=== PATIENT | male | born 1990 | race Caucasian/White ===

== ENCOUNTER 2017-10-22 16:30 | Emergency (ER) | payer MEDICAID, OTHER ==
[~2017-10-22] VITALS: Ht 193859 cm; Wt 79.5 kg
[~2017-10-22 16:30] MED LIST: BUSP30TA2 PO; CLIN300C53 PO; FAMO20TA8 PO; IBUP-1986 PO; LITH300T3 PO; PROP40TA7 PO; RISP3TAB3 PO
[2017-10-22] MEDS ORDERED: haloperidol lactate 5mg/ml inj IM ONE (16:40)
[2017-10-22] MEDS: LORazepam 2 mg/ml vial IM ONE (16:40)
[2017-10-22 17:10] LABS: CLARITY,URINE CLEAR (Clear); COLOR,URINE YELLOW (Yellow); GLUCOSE, URINE NEGATIVE (Neg); KETONES,URINE NEGATIVE (Neg); LEUKOCYTE ESTERASE ,URINE NEGATIVE (Neg); NITRITES, URINE NEGATIVE (Neg); OCCULT BLOOD,URINE NEGATIVE (Neg); PROTEIN,URINE NEGATIVE (Neg); UROBILINOGEN,URINE 0.2 E.U/dL (0.2-1.0)
[2017-10-22 17:12] LABS: UA COLLECTION TYPE CLN CATCH MIDSTREAM
[2017-10-22 17:17] LABS: URINE AMPHETAMINE SCREEN NEGATIVE (Neg); URINE BARBITUATE SCREEN NEGATIVE (Neg); URINE BENZODIAZEPINES SCREEN NEGATIVE (Neg); URINE CANNABINOID SCREEN NEGATIVE (Neg); URINE COCAINE SCREEN NEGATIVE (Neg); URINE METHADONE SCREEN NEGATIVE (Neg); URINE OPIATE SCREEN NEGATIVE (Neg); URINE PHENCYCLIDINE SCREEN NEGATIVE (Neg)
[2017-10-22 17:31] LABS: BASOPHILS # (AUTO) 0.1 X10'3 (0-0.2); BASOPHILS % (AUTO) 0.8 % (0-1); EOSINOPHILS # (AUTO) 0.2 X10'3 (0-0.9); EOSINOPHILS % (AUTO) 1.4 % (0-6); HEMATOCRIT 40.9 % (42.0-52.0); HEMOGLOBIN 13.8 g/dl (14.0-17.9); LYMPHOCYTES # (AUTO) 3.5 X10'3 (1.1-4.8); LYMPHOCYTES % (AUTO) 26.9 % (21-51); MEAN CORPUSCULAR HEMOGLOBIN 31.2 PG (27.0-31.0); MEAN CORPUSCULAR HGB CONC 33.6 % (33.0-36.5); MEAN CORPUSCULAR VOLUME 92.9 FL (78-98); MEAN PLATELET VOLUME 7.9 FL (7.4-10.4); MONOCYTES # (AUTO) 1.9 X10'3 (0-0.9); MONOCYTES % (AUTO) 14.4 % (2-12); NEUTROPHILS # (AUTO) 7.4 X10'3 (1.8-7.7); NEUTROPHILS % (AUTO) 56.5 % (42-75); PLATELET COUNT 321 X10'3 (140-440); RED BLOOD COUNT 4.41 X10'6 (4.70-6.10); RED CELL DISTRIBUTION WIDTH 14.8 % (11.5-14.5); WHITE BLOOD COUNT 13.1 X10'3 (4.5-11.0)
[2017-10-22 17:57] LABS: ALANINE AMINOTRANSFERASE 34 U/L (12-78); ALBUMIN 4.1 G/DL (3.4-5.0); ALBUMIN/GLOBULIN RATIO 1.1 (1.1-1.5); ALKALINE PHOSPHATASE 57 IU/L (46-116); ANION GAP 9 (8-16); ASPARTATE AMINO TRANSFERASE 18 U/L (10-37); BILIRUBIN,TOTAL 0.3 MG/DL (0.1-1.0); BLOOD UREA NITROGEN 11 MG/DL (7-18); BUN/CREATININE RATIO 11.6 (5.4-32.0); CALCIUM 9.1 MG/DL (8.5-10.1); CHLORIDE 105 MMOL/L (99-107); CREATININE 0.95 MG/DL (0.60-1.10); ETHANOL < 0.010 GM/DL (0.0-0.010); GLUCOSE 129 MG/DL (70-104); POTASSIUM 3.5 MMOL/L (3.5-5.1); SODIUM 139 MMOL/L (135-145); TOTAL CARBON DIOXIDE 25.2 MMOL/L (24-32); TOTAL PROTEIN 7.7 G/DL (6.4-8.2); eGFR > 90 ML/MIN
[2017-10-22] MEDS ORDERED: nicotine 14mg patch - 24hr TD ONE (19:10)
[2017-10-22] MEDS ORDERED: QUET100T33 PO (19:24)
[2017-10-23] MEDS: LORazepam 2 mg/ml vial IM ONE (01:07)
[2017-10-23] MEDS ORDERED: LORazepam 1 MG tablet PO PRN (03:15)
[2017-10-23] MEDS ORDERED: propranolol 40mg tablet PO SCH (08:00)
[2017-10-23] MEDS ORDERED: OLANZapine 2.5MG tablet PO SCH (08:00)
[2017-10-23] MEDS ORDERED: aripiprazole 5mg tablet PO SCH (08:00)
[2017-10-23] MEDS ORDERED: olanzapine 10mg tablet PO SCH (08:00)
[2017-10-23] MEDS ORDERED: divalproex sod 250mg ER (24-hour) tablet PO SCH (08:00)
[2017-10-23] MEDS ORDERED: famotidine 20mg tablet PO SCH (08:00)
[2017-10-23] MEDS ORDERED: ibuprofen tablet 400 MG TABLET PO PRN (08:00)
[2017-10-23] MEDS ORDERED: nicotine 7mg patch - 24hr TD SCH (10:25)
[2017-10-23 20:12] VITALS: BP 129/69
[2017-10-23] MEDS ORDERED: lithium carbonate 150mg capsule PO SCH (21:00)
[2017-10-23] MEDS ORDERED: quetiapine 100mg tablet PO SCH (21:00)
== END 2017-10-23 20:20 ==
LOC: ER 16:30
DX: F29 Unspecified psychosis not due to a substance or known physiological condition (principal); F25.9 Schizoaffective disorder, unspecified; K21.9 Gastro-esophageal reflux disease without esophagitis; J45.909 Unspecified asthma, uncomplicated; F41.9 Anxiety disorder, unspecified; F12.10 Cannabis abuse, uncomplicated; Z59.0 Homelessness; Z60.2 Problems related to living alone; Z79.899 Other long term (current) drug therapy
CPT/HCPCS: 36415; 80053; 80305; 80320; 81003; 84443; 85025; 96372; 99285; J2060; J3490

== ENCOUNTER 2021-03-30 11:59 | Inpatient (IN) | payer MEDICAID ==
[~2021-03-30] VITALS: Ht 177.8 cm; Wt 81.1 kg
[~2021-03-30 11:59] MED LIST changes: +ATI1T PO; -BUSP30TA2 PO; +CHOL200080 PO; -CLIN300C53 PO; +CLOZ100T13 PO; +CLOZ50TA PO; +DOCU-148 PO; -FAMO20TA8 PO; +HYDR50TA65 PO; -IBUP-1986 PO; +LISI20TA28 PO; +LITH300C PO; -LITH300T3 PO; +OMEP20TA23 PO; -PROP40TA7 PO; +RISP120S SQ; -RISP3TAB3 PO; +ZIPR40CA2 PO
[2021-03-30 19:18] VITALS: BP 112/69
[2021-03-30] MEDS ORDERED: loperamide 2mg capsule PO PRN (19:45)
[2021-03-30] MEDS ORDERED: acetaminophen 325mg tablet PO PRN (19:45)
[2021-03-30] MEDS ORDERED: CLOZ200T PO (20:54)
[2021-03-30] MEDS ORDERED: HALO5TAB PO (20:54)
[2021-03-30] MEDS ORDERED: LURA60TA PO (20:54)
[2021-03-30] MEDS ORDERED: ZIPR40CA2 PO (20:54)
[2021-03-30] MEDS ORDERED: FLUV50TA9 PO (20:54)
[2021-03-30] MEDS ORDERED: CLOM50CA10 PO (20:54)
[2021-03-30] MEDS ORDERED: HYDR50TA65 PO ×2 (20:54)
[2021-03-30] MEDS ORDERED: DIAZ5TAB PO (20:54)
[2021-03-30] MEDS ORDERED: CHLO100T16 PO (20:54)
[2021-03-30] MEDS ORDERED: LISI20TA28 PO (20:54)
[2021-03-30] MEDS ORDERED: TEMA15CA5 PO (20:54)
[2021-03-30] MEDS ORDERED: LITH300T3 PO (20:54)
[2021-03-30] MEDS ORDERED: HYDR-3686 PO (20:54)
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
[2021-03-30] MEDS ORDERED: temazepam 15mg capsule PO PRN (21:30)
[2021-03-30] MEDS ORDERED: ziprasidone 20mg capsule PO SCH ×2 (21:37→21:49)
[2021-03-30] MEDS ORDERED: hydrOXYzine 25 MG tablet PO ONE ×2 (21:40→21:45)
[2021-03-30] MEDS ORDERED: CLOMIPRAMINE HCL 50 MG CAPSULE PO ONE (21:40)
[2021-03-30] MEDS: clozapine 100mg tablet PO SCH (22:04)
[2021-03-31 08:00] VITALS: BP 110/66
[2021-03-31 08:27] LABS: CHOL/HDL RATIO 4.4 (0.00-4.99); CHOLESTEROL 182 MG/DL (0-200); HDL CHOLESTEROL 41 MG/DL (35-60); LDL CHOLESTEROL 124 MG/DL (50-100); TRIGLYCERIDES 67 MG/DL (20-135)
[2021-03-31 08:31] LABS: HEMOGLOBIN A1C 5.2 % (4.5-6.2)
[2021-03-31] MEDS: cholecalciferol (vitamin D3) 1,000 unit (25mcg) tablet PO SCH (08:33)
[2021-03-31] MEDS: docusate sod 100mg capsule PO SCH (08:33)
[2021-03-31] MEDS: ziprasidone 20mg capsule PO SCH ×2 (08:33→17:49)
[2021-03-31] MEDS: haloperidol 5mg tablet PO SCH ×2 (08:34→17:50)
[2021-03-31] MEDS: lurasidone 60mg tablet PO SCH ×2 (08:34→17:49)
[2021-03-31] MEDS: pantoprazole 40mg Tablet.DR PO SCH (08:34)
[2021-03-31] MEDS: diazepam 5mg tablet PO SCH (08:34)
[2021-03-31] MEDS: lisinopril 20mg tablet PO SCH (08:34)
[2021-03-31] MEDS: fluvoxamine 25 MG tablet PO SCH (08:35)
[2021-03-31] MEDS: hydrOXYzine 25 MG tablet PO SCH ×3 (08:35→20:17)
[2021-03-31] MEDS: magnesium hydroxide 30ml (MOM) UD suspension PO PRN (08:50)
[2021-03-31] MEDS: NICOTINE POLACRILEX 2 MG LOZENGE BC PRN ×4 (08:50→19:43)
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
[2021-03-31] MEDS: levoFLOXACIN 500mg tablet PO SCH (17:49)
[2021-03-31 18:25] LABS: BASOPHILS # (AUTO) 0.1 X10'3 (0-0.2); EOSINOPHILS # (AUTO) 0.3 X10'3 (0-0.9); EOSINOPHILS % (AUTO) 2.3 % (0-6); HEMATOCRIT 39.7 % (42.0-52.0); HEMOGLOBIN 13.2 g/dl (14.0-17.9); LYMPHOCYTES % (AUTO) 32.8 % (21-51); MEAN CORPUSCULAR HEMOGLOBIN 29.5 PG (27.0-31.0); MEAN CORPUSCULAR HGB CONC 33.2 g/dL (33.0-36.5); MEAN PLATELET VOLUME 6.7 FL (7.4-10.4); MONOCYTES # (AUTO) 2.1 X10'3 (0-0.9); MONOCYTES % (AUTO) 13.7 % (2-12); NEUTROPHILS # (AUTO) 7.7 X10'3 (1.8-7.7); NEUTROPHILS % (AUTO) 50.2 % (42-75); PLATELET COUNT 407 X10'3 (140-440); RED BLOOD COUNT 4.46 X10'6 (4.70-6.10); RED CELL DISTRIBUTION WIDTH 15.1 % (11.5-14.5); WHITE BLOOD COUNT 15.2 X10'3 (4.5-11.0)
[2021-03-31 19:17] VITALS: BP 123/81
[2021-03-31] MEDS: lithium carbonate 150mg capsule PO SCH (20:16)
[2021-03-31] MEDS: CLOMIPRAMINE HCL 50 MG CAPSULE PO SCH (20:16)
[2021-03-31] MEDS: clozapine 100mg tablet PO SCH (20:17)
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
[2021-04-01 08:00] VITALS: BP 141/85
[2021-04-01] MEDS: ziprasidone 20mg capsule PO SCH (08:03)
[2021-04-01] MEDS: lurasidone 60mg tablet PO SCH ×2 (08:03→17:55)
[2021-04-01] MEDS: pantoprazole 40mg Tablet.DR PO SCH (08:03)
[2021-04-01] MEDS: cholecalciferol (vitamin D3) 1,000 unit (25mcg) tablet PO SCH (08:03)
[2021-04-01] MEDS: lisinopril 20mg tablet PO SCH (08:03)
[2021-04-01] MEDS: fluvoxamine 25 MG tablet PO SCH (08:03)
[2021-04-01] MEDS: diazepam 5mg tablet PO SCH (08:03)
[2021-04-01] MEDS: levoFLOXACIN 500mg tablet PO SCH (08:04)
[2021-04-01] MEDS: haloperidol 5mg tablet PO SCH ×2 (08:04→17:56)
[2021-04-01] MEDS: docusate sod 100mg capsule PO SCH (08:04)
[2021-04-01] MEDS: hydrOXYzine 25 MG tablet PO SCH ×3 (08:04→20:26)
[2021-04-01] MEDS: magnesium hydroxide 30ml (MOM) UD suspension PO PRN (08:12)
[2021-04-01] MEDS: NICOTINE POLACRILEX 2 MG LOZENGE BC PRN ×2 (09:02→12:57)
[2021-04-01] MEDS: chlorproMAZINE 25mg tablet PO PRN (14:25)
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
[2021-04-01 20:00] VITALS: BP 125/83
[2021-04-01] MEDS: lithium carbonate 150mg capsule PO SCH (20:27)
[2021-04-01] MEDS: CLOMIPRAMINE HCL 50 MG CAPSULE PO SCH (20:29)
[2021-04-01] MEDS ORDERED: clozapine 100mg tablet PO SCH (21:00)
[2021-04-01] MEDS ORDERED: clozapine 25mg tablet PO SCH (21:00)
[2021-04-01] MEDS ORDERED: cephalexin 500mg capsule PO SCH (21:50)
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
[2021-04-02 08:00] VITALS: BP 113/72
[2021-04-02] MEDS ORDERED: hydrOXYzine 25 MG tablet PO SCH (08:00)
[2021-04-02] MEDS ORDERED: ziprasidone 20mg capsule PO SCH (08:00)
[2021-04-02] MEDS: fluvoxamine 25 MG tablet PO SCH (08:03)
[2021-04-02] MEDS: levoFLOXACIN 500mg tablet PO SCH (08:04)
[2021-04-02] MEDS: docusate sod 100mg capsule PO SCH (08:04)
[2021-04-02] MEDS: diazepam 5mg tablet PO SCH (08:04)
[2021-04-02] MEDS: lurasidone 60mg tablet PO SCH ×2 (08:04→17:01)
[2021-04-02] MEDS: cephalexin 500mg capsule PO SCH ×4 (08:05→20:29)
[2021-04-02] MEDS: haloperidol 5mg tablet PO SCH ×2 (08:05→17:01)
[2021-04-02] MEDS: cholecalciferol (vitamin D3) 1,000 unit (25mcg) tablet PO SCH (08:05)
[2021-04-02] MEDS: pantoprazole 40mg Tablet.DR PO SCH (08:10)
[2021-04-02] MEDS: lisinopril 20mg tablet PO SCH (08:10)
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
[2021-04-02] MEDS ORDERED: clozapine 25mg tablet PO PRN (16:05)
[2021-04-02 19:00] VITALS: BP 116/83
[2021-04-02] MEDS: lactobacillus rhamnosus 10,000 MMU CELLS/CAPSULE PO SCH (20:27)
[2021-04-02] MEDS: clozapine 100mg tablet PO SCH (20:28)
[2021-04-02] MEDS: CLOMIPRAMINE HCL 50 MG CAPSULE PO SCH (20:28)
[2021-04-02] MEDS: carbamide peroxide 15ml bottle EACH EAR SCH (20:30)
[2021-04-02] MEDS: lithium carbonate 150mg capsule PO SCH (20:30)
[2021-04-02] MEDS ORDERED: clozapine 100mg tablet PO SCH (21:00)
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
[2021-04-03] MEDS: diazepam 5mg tablet PO SCH ×2 (07:39→13:05)
[2021-04-03] MEDS: levoFLOXACIN 500mg tablet PO SCH (07:40)
[2021-04-03] MEDS: fluvoxamine 25 MG tablet PO SCH (07:40)
[2021-04-03] MEDS: docusate sod 100mg capsule PO SCH (07:40)
[2021-04-03] MEDS: cholecalciferol (vitamin D3) 1,000 unit (25mcg) tablet PO SCH (07:40)
[2021-04-03] MEDS: pantoprazole 40mg Tablet.DR PO SCH (07:42)
[2021-04-03] MEDS: lisinopril 20mg tablet PO SCH (07:42)
[2021-04-03] MEDS: lurasidone 60mg tablet PO SCH ×2 (07:42→17:01)
[2021-04-03] MEDS: lactobacillus rhamnosus 10,000 MMU CELLS/CAPSULE PO SCH ×2 (07:43→20:11)
[2021-04-03] MEDS: haloperidol 5mg tablet PO SCH ×2 (07:43→17:01)
[2021-04-03] MEDS: cephalexin 500mg capsule PO SCH ×4 (07:43→20:11)
[2021-04-03] MEDS: carbamide peroxide 15ml bottle EACH EAR SCH ×2 (07:45→20:15)
[2021-04-03 08:00] VITALS: BP 104/66
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
[2021-04-03 19:00] VITALS: BP 119/71
[2021-04-03] MEDS: clozapine 100mg tablet PO SCH (20:11)
[2021-04-03] MEDS: lithium carbonate 150mg capsule PO SCH (20:11)
[2021-04-03] MEDS: CLOMIPRAMINE HCL 50 MG CAPSULE PO SCH (20:15)
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
[2021-04-04] MEDS: cholecalciferol (vitamin D3) 1,000 unit (25mcg) tablet PO SCH (08:03)
[2021-04-04] MEDS: diazepam 5mg tablet PO SCH ×2 (08:03→12:03)
[2021-04-04] MEDS: haloperidol 5mg tablet PO SCH ×2 (08:03→16:45)
[2021-04-04] MEDS: docusate sod 100mg capsule PO SCH (08:03)
[2021-04-04] MEDS: pantoprazole 40mg Tablet.DR PO SCH (08:03)
[2021-04-04] MEDS: lisinopril 20mg tablet PO SCH (08:04)
[2021-04-04] MEDS: lurasidone 60mg tablet PO SCH ×2 (08:05→16:45)
[2021-04-04] MEDS: fluvoxamine 25 MG tablet PO SCH (08:05)
[2021-04-04] MEDS: cephalexin 500mg capsule PO SCH ×4 (08:05→20:18)
[2021-04-04] MEDS: lactobacillus rhamnosus 10,000 MMU CELLS/CAPSULE PO SCH ×2 (08:05→20:17)
[2021-04-04 08:06] VITALS: BP 122/64
[2021-04-04] MEDS: carbamide peroxide 15ml bottle EACH EAR SCH ×2 (08:06→20:15)
[2021-04-04] MEDS: levoFLOXACIN 500mg tablet PO SCH (08:07)
--- NOTE | 2021-04-04 12:21 | NUR ---
Initial: Pt admitted for psych eval. Pt w/ good appetite, eating mostly 100% of meals on Regular diet w/ some snacks as well. Pt compliant w/ meds No N/V/D noted, LBM 04/01. No nutritional diagnosis at this time, will continue to monitor. Recs: 1. Continue Regular diet as tolerated 2. Bowel care per rx 3. Weekly wts Addendum: 04/04/21 at [address] Amended: Links added.
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
[2021-04-04] MEDS: NICOTINE POLACRILEX 2 MG LOZENGE BC PRN (16:52)
[2021-04-04] MEDS: CLOMIPRAMINE HCL 50 MG CAPSULE PO SCH (20:17)
[2021-04-04] MEDS: clozapine 100mg tablet PO SCH (20:18)
[2021-04-04] MEDS: lithium carbonate 150mg capsule PO SCH (20:18)
[2021-04-04 20:40] VITALS: BP 109/70
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
[2021-04-05 07:00] VITALS: BP 121/67
[2021-04-05] MEDS: lactobacillus rhamnosus 10,000 MMU CELLS/CAPSULE PO SCH ×2 (07:40→20:28)
[2021-04-05] MEDS: pantoprazole 40mg Tablet.DR PO SCH (07:40)
[2021-04-05] MEDS: diazepam 5mg tablet PO SCH ×2 (07:40→12:03)
[2021-04-05] MEDS: lurasidone 60mg tablet PO SCH ×2 (07:40→16:21)
[2021-04-05] MEDS: haloperidol 5mg tablet PO SCH ×2 (07:40→16:21)
[2021-04-05] MEDS: levoFLOXACIN 500mg tablet PO SCH (07:40)
[2021-04-05] MEDS: docusate sod 100mg capsule PO SCH (07:40)
[2021-04-05] MEDS: cephalexin 500mg capsule PO SCH ×4 (07:40→20:28)
[2021-04-05] MEDS: lisinopril 20mg tablet PO SCH (07:41)
[2021-04-05] MEDS: fluvoxamine 25 MG tablet PO SCH (07:41)
[2021-04-05] MEDS: cholecalciferol (vitamin D3) 1,000 unit (25mcg) tablet PO SCH (07:41)
[2021-04-05] MEDS: carbamide peroxide 15ml bottle EACH EAR SCH ×2 (07:42→20:25)
[2021-04-05] MEDS: NICOTINE POLACRILEX 2 MG LOZENGE BC PRN ×2 (10:54→16:21)
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
[2021-04-05] MEDS: lithium carbonate 150mg capsule PO SCH (20:28)
[2021-04-05] MEDS: clozapine 100mg tablet PO SCH (20:28)
[2021-04-05 20:33] VITALS: BP 121/78
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
[2021-04-06] MEDS: cephalexin 500mg capsule PO SCH ×4 (07:22→20:44)
[2021-04-06] MEDS: diazepam 5mg tablet PO SCH ×2 (07:22→12:32)
[2021-04-06] MEDS: haloperidol 5mg tablet PO SCH ×2 (07:22→16:14)
[2021-04-06] MEDS: levoFLOXACIN 500mg tablet PO SCH (07:22)
[2021-04-06] MEDS: fluvoxamine 25 MG tablet PO SCH (07:22)
[2021-04-06] MEDS: pantoprazole 40mg Tablet.DR PO SCH (07:22)
[2021-04-06] MEDS: lurasidone 60mg tablet PO SCH ×2 (07:22→16:14)
[2021-04-06] MEDS: docusate sod 100mg capsule PO SCH (07:22)
[2021-04-06] MEDS: lactobacillus rhamnosus 10,000 MMU CELLS/CAPSULE PO SCH ×2 (07:23→20:44)
[2021-04-06] MEDS: cholecalciferol (vitamin D3) 1,000 unit (25mcg) tablet PO SCH (07:23)
[2021-04-06] MEDS: carbamide peroxide 15ml bottle EACH EAR SCH ×2 (07:25→20:48)
[2021-04-06 08:00] VITALS: BP 110/57
[2021-04-06] MEDS: lisinopril 20mg tablet PO SCH (08:00)
[2021-04-06] MEDS: NICOTINE POLACRILEX 2 MG LOZENGE BC PRN ×3 (13:25→19:04)
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
[2021-04-06 19:37] VITALS: BP 123/79
[2021-04-06] MEDS: lithium carbonate 150mg capsule PO SCH (20:44)
[2021-04-06] MEDS: clozapine 100mg tablet PO SCH (20:44)
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
[2021-04-07 07:53] VITALS: BP 130/66
[2021-04-07] MEDS: carbamide peroxide 15ml bottle EACH EAR SCH ×2 (08:00→20:41)
[2021-04-07 08:04] LABS: BASOPHILS # (AUTO) 0.1 X10'3 (0-0.2); BASOPHILS % (AUTO) 0.6 % (0-1); EOSINOPHILS # (AUTO) 0.5 X10'3 (0-0.9); EOSINOPHILS % (AUTO) 3.9 % (0-6); HEMATOCRIT 41.3 % (42.0-52.0); HEMOGLOBIN 13.7 g/dl (14.0-17.9); LYMPHOCYTES # (AUTO) 2.9 X10'3 (1.1-4.8); LYMPHOCYTES % (AUTO) 22.6 % (21-51); MEAN CORPUSCULAR HEMOGLOBIN 29.3 PG (27.0-31.0); MEAN CORPUSCULAR HGB CONC 33.3 g/dL (33.0-36.5); MEAN PLATELET VOLUME 6.3 FL (7.4-10.4); MONOCYTES # (AUTO) 1.9 X10'3 (0-0.9); MONOCYTES % (AUTO) 14.6 % (2-12); NEUTROPHILS # (AUTO) 7.5 X10'3 (1.8-7.7); NEUTROPHILS % (AUTO) 58.3 % (42-75); PLATELET COUNT 404 X10'3 (140-440); RED BLOOD COUNT 4.69 X10'6 (4.70-6.10); RED CELL DISTRIBUTION WIDTH 14.9 % (11.5-14.5); WHITE BLOOD COUNT 12.9 X10'3 (4.5-11.0)
[2021-04-07] MEDS: docusate sod 100mg capsule PO SCH (09:10)
[2021-04-07] MEDS: lurasidone 60mg tablet PO SCH ×2 (09:10→18:03)
[2021-04-07] MEDS: diazepam 5mg tablet PO SCH ×2 (09:10→12:19)
[2021-04-07] MEDS: fluvoxamine 25 MG tablet PO SCH (09:10)
[2021-04-07] MEDS: haloperidol 5mg tablet PO SCH ×2 (09:11→16:48)
[2021-04-07] MEDS: cholecalciferol (vitamin D3) 1,000 unit (25mcg) tablet PO SCH (09:11)
[2021-04-07] MEDS: lisinopril 20mg tablet PO SCH (09:11)
[2021-04-07] MEDS: pantoprazole 40mg Tablet.DR PO SCH (09:11)
[2021-04-07] MEDS: levoFLOXACIN 500mg tablet PO SCH (09:12)
[2021-04-07] MEDS: cephalexin 500mg capsule PO SCH ×4 (09:12→20:40)
[2021-04-07] MEDS: lactobacillus rhamnosus 10,000 MMU CELLS/CAPSULE PO SCH ×2 (09:12→20:40)
[2021-04-07] MEDS: NICOTINE POLACRILEX 2 MG LOZENGE BC PRN ×2 (13:09→16:48)
--- NOTE | 2021-04-07 13:14 | NUR ---
PLACEMENT Sent placement packet to [facility] office. Informed KENDALL that Vishnu has requested [facility]. NICOLAS Velásquez
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
[2021-04-07 19:49] VITALS: BP 122/70
[2021-04-07] MEDS: lithium carbonate 150mg capsule PO SCH (20:40)
[2021-04-07] MEDS: clozapine 100mg tablet PO SCH (20:41)
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
[2021-04-08 07:36] VITALS: BP 111/58
[2021-04-08] MEDS: docusate sod 100mg capsule PO SCH (08:41)
[2021-04-08] MEDS: diazepam 5mg tablet PO SCH ×2 (08:41→13:13)
[2021-04-08] MEDS: pantoprazole 40mg Tablet.DR PO SCH (08:42)
[2021-04-08] MEDS: lactobacillus rhamnosus 10,000 MMU CELLS/CAPSULE PO SCH ×2 (08:42→20:50)
[2021-04-08] MEDS: cholecalciferol (vitamin D3) 1,000 unit (25mcg) tablet PO SCH (08:42)
[2021-04-08] MEDS: fluvoxamine 25 MG tablet PO SCH (08:42)
[2021-04-08] MEDS: lurasidone 60mg tablet PO SCH ×2 (08:42→18:09)
[2021-04-08] MEDS: cephalexin 500mg capsule PO SCH ×4 (08:42→20:50)
[2021-04-08] MEDS: haloperidol 5mg tablet PO SCH ×2 (08:42→18:09)
[2021-04-08] MEDS: lisinopril 20mg tablet PO SCH (08:43)
[2021-04-08] MEDS: carbamide peroxide 15ml bottle EACH EAR SCH ×2 (08:45→20:49)
--- NOTE | 2021-04-08 11:05 | NUR ---
PUBLIC GUARDIAN Contact Lens Molder received the following email from Vishnu's Public Guardian, Beulah Ferrell: Our [facility] office informed me that [facility] was recommending Vishnu for a lower level of care. He left me a couple messages saying his doctor okayed a lower level also. I called and spoke to him this afternoon and while he is calmer, he is not ready to go anywhere. As soon as I mentioned [place] he started into the same delusions about his father. Once I had him admit he is still hearing and seeing his father at [facility] he got very demanding about wanting a restraining order against him because he is following him from facility to facility and is a lunatic. I asked him what would happen if I sent an officer up to investigate, would they be able to see and confirm his father was there. Vishnu got pretty upset at this point and said he knows his father is talking to the staff there and I needed to get the restraining order to happen NOW. I asked him if he told the doctor he was still hearing his father and he lied at first but then said he told one of the nurses. Beulah Ferrell [place] Public Guardian [facility] [phone] Fax NICOLAS Velásquez
[2021-04-08] MEDS: NICOTINE POLACRILEX 2 MG LOZENGE BC PRN (13:36)
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
[2021-04-08 19:25] VITALS: BP 117/71
[2021-04-08] MEDS: lithium carbonate 150mg capsule PO SCH (20:50)
[2021-04-08] MEDS: clozapine 100mg tablet PO SCH (20:51)
[2021-04-08] MEDS: clozapine 25mg tablet PO SCH (20:51)
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
[2021-04-09] MEDS: fluvoxamine 25 MG tablet PO SCH (08:17)
[2021-04-09] MEDS: cephalexin 500mg capsule PO SCH ×4 (08:17→20:35)
[2021-04-09] MEDS: docusate sod 100mg capsule PO SCH (08:18)
[2021-04-09] MEDS: cholecalciferol (vitamin D3) 1,000 unit (25mcg) tablet PO SCH (08:18)
[2021-04-09] MEDS: diazepam 5mg tablet PO SCH ×2 (08:19→13:37)
[2021-04-09] MEDS: lurasidone 60mg tablet PO SCH ×2 (08:19→17:32)
[2021-04-09] MEDS: lactobacillus rhamnosus 10,000 MMU CELLS/CAPSULE PO SCH ×2 (08:19→20:35)
[2021-04-09] MEDS: lisinopril 20mg tablet PO SCH (08:19)
[2021-04-09] MEDS: pantoprazole 40mg Tablet.DR PO SCH (08:20)
[2021-04-09] MEDS: haloperidol 5mg tablet PO SCH ×2 (08:20→17:32)
[2021-04-09] MEDS: carbamide peroxide 15ml bottle EACH EAR SCH ×2 (08:21→20:35)
[2021-04-09 08:46] VITALS: BP 115/52
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
[2021-04-09 19:55] VITALS: BP 132/75
[2021-04-09] MEDS: lithium carbonate 150mg capsule PO SCH (20:35)
[2021-04-09] MEDS: clozapine 100mg tablet PO SCH (20:35)
[2021-04-09] MEDS: clozapine 25mg tablet PO SCH (20:35)
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
[2021-04-10 07:00] VITALS: BP 118/80
[2021-04-10] MEDS: carbamide peroxide 15ml bottle EACH EAR SCH ×2 (07:40→20:39)
[2021-04-10] MEDS: docusate sod 100mg capsule PO SCH (07:40)
[2021-04-10] MEDS: cholecalciferol (vitamin D3) 1,000 unit (25mcg) tablet PO SCH (07:42)
[2021-04-10] MEDS: diazepam 5mg tablet PO SCH ×2 (07:42→13:26)
[2021-04-10] MEDS: lurasidone 60mg tablet PO SCH ×2 (07:42→16:15)
[2021-04-10] MEDS: lactobacillus rhamnosus 10,000 MMU CELLS/CAPSULE PO SCH ×2 (07:42→20:37)
[2021-04-10] MEDS: fluvoxamine 25 MG tablet PO SCH (07:42)
[2021-04-10] MEDS: lisinopril 20mg tablet PO SCH (07:42)
[2021-04-10] MEDS: pantoprazole 40mg Tablet.DR PO SCH (07:42)
[2021-04-10] MEDS: haloperidol 5mg tablet PO SCH ×2 (07:42→16:15)
[2021-04-10] MEDS: cephalexin 500mg capsule PO SCH ×4 (07:42→20:37)
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
[2021-04-10] MEDS: NICOTINE POLACRILEX 2 MG LOZENGE BC PRN ×2 (13:26→16:15)
[2021-04-10 19:36] VITALS: BP 122/72
[2021-04-10] MEDS: lithium carbonate 150mg capsule PO SCH (20:37)
[2021-04-10] MEDS: clozapine 25mg tablet PO SCH (20:38)
[2021-04-10] MEDS: clozapine 100mg tablet PO SCH (20:39)
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
[2021-04-11 07:30] VITALS: BP 139/59
[2021-04-11] MEDS: lurasidone 60mg tablet PO SCH ×2 (08:11→17:37)
[2021-04-11] MEDS: diazepam 5mg tablet PO SCH ×2 (08:11→12:40)
[2021-04-11] MEDS: cholecalciferol (vitamin D3) 1,000 unit (25mcg) tablet PO SCH (08:11)
[2021-04-11] MEDS: haloperidol 5mg tablet PO SCH ×2 (08:11→17:35)
[2021-04-11] MEDS: pantoprazole 40mg Tablet.DR PO SCH (08:12)
[2021-04-11] MEDS: docusate sod 100mg capsule PO SCH (08:12)
[2021-04-11] MEDS: cephalexin 500mg capsule PO SCH (08:12)
[2021-04-11] MEDS: lactobacillus rhamnosus 10,000 MMU CELLS/CAPSULE PO SCH ×2 (08:12→20:23)
[2021-04-11] MEDS: fluvoxamine 25 MG tablet PO SCH (08:12)
[2021-04-11] MEDS: lisinopril 20mg tablet PO SCH (08:18)
[2021-04-11] MEDS: carbamide peroxide 15ml bottle EACH EAR SCH ×2 (08:36→20:23)
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
[2021-04-11] MEDS: lithium carbonate 150mg capsule PO SCH (20:22)
[2021-04-11] MEDS: clozapine 100mg tablet PO SCH (20:23)
[2021-04-11] MEDS: clozapine 25mg tablet PO SCH (20:23)
[2021-04-11 20:30] VITALS: BP 104/71
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
[2021-04-12 08:00] VITALS: BP 102/51
[2021-04-12] MEDS: fluvoxamine 25 MG tablet PO SCH (08:07)
[2021-04-12] MEDS: cholecalciferol (vitamin D3) 1,000 unit (25mcg) tablet PO SCH (08:08)
[2021-04-12] MEDS: lactobacillus rhamnosus 10,000 MMU CELLS/CAPSULE PO SCH ×2 (08:08→20:10)
[2021-04-12] MEDS: pantoprazole 40mg Tablet.DR PO SCH (08:08)
[2021-04-12] MEDS: diazepam 5mg tablet PO SCH ×2 (08:08→11:42)
[2021-04-12] MEDS: lisinopril 20mg tablet PO SCH (08:08)
[2021-04-12] MEDS: lurasidone 60mg tablet PO SCH ×2 (08:08→17:51)
[2021-04-12] MEDS: docusate sod 100mg capsule PO SCH (08:08)
[2021-04-12] MEDS: haloperidol 5mg tablet PO SCH ×2 (08:09→17:51)
[2021-04-12] MEDS: carbamide peroxide 15ml bottle EACH EAR SCH ×2 (08:34→20:11)
--- NOTE | 2021-04-12 14:16 | NUR ---
Reassessment: Pt PO 100% avg regular diet meeting needs. LBM 04/11. No nutrition intervention at this time. Will continue to monitor. Recs: 1. Continue Regular diet as tolerated 2. Bowel care per rx 3. Weekly wts Addendum: 04/12/21 at [address] Amended: Links added.
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
[2021-04-12] MEDS: NICOTINE POLACRILEX 2 MG LOZENGE BC PRN (17:51)
[2021-04-12 19:20] VITALS: BP 132/77
[2021-04-12] MEDS: clozapine 100mg tablet PO SCH (20:10)
[2021-04-12] MEDS: chlorproMAZINE 25mg tablet PO PRN (20:10)
[2021-04-12] MEDS: clozapine 25mg tablet PO SCH (20:10)
[2021-04-12] MEDS: lithium carbonate 150mg capsule PO SCH (20:11)
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
[2021-04-13 08:00] VITALS: BP 105/59
[2021-04-13] MEDS: pantoprazole 40mg Tablet.DR PO SCH (08:07)
[2021-04-13] MEDS: haloperidol 5mg tablet PO SCH ×2 (08:07→17:40)
[2021-04-13] MEDS: fluvoxamine 25 MG tablet PO SCH (08:07)
[2021-04-13] MEDS: docusate sod 100mg capsule PO SCH (08:07)
[2021-04-13] MEDS: cholecalciferol (vitamin D3) 1,000 unit (25mcg) tablet PO SCH (08:07)
[2021-04-13] MEDS: diazepam 5mg tablet PO SCH ×2 (08:07→11:53)
[2021-04-13] MEDS: lactobacillus rhamnosus 10,000 MMU CELLS/CAPSULE PO SCH ×2 (08:07→20:04)
[2021-04-13] MEDS: lurasidone 60mg tablet PO SCH ×2 (08:15→17:40)
[2021-04-13] MEDS: lisinopril 20mg tablet PO SCH (08:16)
[2021-04-13] MEDS: carbamide peroxide 15ml bottle EACH EAR SCH ×2 (08:42→20:11)
[2021-04-13] MEDS: chlorproMAZINE 25mg tablet PO PRN (11:05)
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
[2021-04-13 20:00] VITALS: BP 104/55
[2021-04-13] MEDS: lithium carbonate 150mg capsule PO SCH (20:04)
[2021-04-13] MEDS: clozapine 25mg tablet PO SCH (20:05)
[2021-04-13] MEDS: clozapine 100mg tablet PO SCH (20:05)
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
[2021-04-14 07:37] VITALS: BP 92/50
[2021-04-14] MEDS: carbamide peroxide 15ml bottle EACH EAR SCH ×2 (08:00→20:30)
[2021-04-14] MEDS: docusate sod 100mg capsule PO SCH (08:06)
[2021-04-14] MEDS: cholecalciferol (vitamin D3) 1,000 unit (25mcg) tablet PO SCH (08:06)
[2021-04-14] MEDS: pantoprazole 40mg Tablet.DR PO SCH (08:07)
[2021-04-14] MEDS: haloperidol 5mg tablet PO SCH ×2 (08:07→17:33)
[2021-04-14] MEDS: fluvoxamine 25 MG tablet PO SCH (08:07)
[2021-04-14] MEDS: lurasidone 60mg tablet PO SCH ×2 (08:07→17:33)
[2021-04-14] MEDS: lactobacillus rhamnosus 10,000 MMU CELLS/CAPSULE PO SCH ×2 (08:08→20:29)
[2021-04-14] MEDS: diazepam 5mg tablet PO SCH ×2 (08:08→12:53)
[2021-04-14 09:09] LABS: BASOPHILS # (AUTO) 0.1 X10'3 (0-0.2); BASOPHILS % (AUTO) 0.8 % (0-1); EOSINOPHILS # (AUTO) 0.5 X10'3 (0-0.9); EOSINOPHILS % (AUTO) 3.4 % (0-6); HEMATOCRIT 42.8 % (42.0-52.0); HEMOGLOBIN 13.8 g/dl (14.0-17.9); LYMPHOCYTES # (AUTO) 3.8 X10'3 (1.1-4.8); LYMPHOCYTES % (AUTO) 25.2 % (21-51); MEAN CORPUSCULAR HEMOGLOBIN 29.1 PG (27.0-31.0); MEAN CORPUSCULAR HGB CONC 32.2 g/dL (33.0-36.5); MEAN CORPUSCULAR VOLUME 90.2 FL (78-98); MEAN PLATELET VOLUME 6.3 FL (7.4-10.4); MONOCYTES # (AUTO) 1.9 X10'3 (0-0.9); MONOCYTES % (AUTO) 12.5 % (2-12); NEUTROPHILS # (AUTO) 8.7 X10'3 (1.8-7.7); NEUTROPHILS % (AUTO) 58.1 % (42-75); PLATELET COUNT 421 X10'3 (140-440); RED BLOOD COUNT 4.75 X10'6 (4.70-6.10); WHITE BLOOD COUNT 14.9 X10'3 (4.5-11.0)
--- NOTE | 2021-04-14 10:33 | NUR ---
PAGER ID: [phone] MESSAGE: CYNTHIA CASEY 327A [facility] PT. TACHY 108 HR, LOW BP 92/50 AND 102/54 AT REST. Wbc 14 TREND UP. DID YOU WANT BC? TOOTH INFECTION? KIARA [phone]
--- NOTE | 2021-04-14 10:42 | NUR ---
AWARE LISINOPRIL HELD R/T LOW BP. LISINOPRIL DC'D. SEE OTHER NEW ORDERS.
[2021-04-14 10:46] VITALS: BP 102/54
[2021-04-14] MEDS: cephalexin 500mg capsule PO SCH ×2 (12:54→20:29)
[2021-04-14 13:47] LABS: CLARITY,URINE CLEAR (Clear); COLOR,URINE YELLOW (Yellow); GLUCOSE, URINE NEGATIVE (Neg); KETONES,URINE NEGATIVE (Neg); LEUKOCYTE ESTERASE ,URINE NEGATIVE (Neg); NITRITES, URINE NEGATIVE (Neg); OCCULT BLOOD,URINE SMALL (Neg); PH,URINE 5.5 (4.8-8.0); PROTEIN,URINE NEGATIVE (Neg); UROBILINOGEN,URINE 0.2 E.U/dL (0.2-1.0)
[2021-04-14 14:00] LABS: UA COLLECTION TYPE CLN CATCH MIDSTREAM
[2021-04-14 14:03] LABS: WBC,URINE 0-4 /HPF (0-4)
[2021-04-14 14:04] LABS: BACTERIA,URINE NONE SEEN /HPF (Neg); RBC,URINE 0-2 /HPF (0-2)
[2021-04-14 14:05] LABS: SQUAMOUS EPITHELIAL CELL,UR NONE SEEN /LPF (FEW)
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
[2021-04-14 16:51] VITALS: BP 122/88
--- NOTE | 2021-04-14 17:43 | NUR ---
Pt. out of room walking in hallway. Requested evening medications which were given. Pt. now alert and awake watching TV with peers in req. room. No complaints or needs at this time.
[2021-04-14] MEDS: NICOTINE POLACRILEX 2 MG LOZENGE BC PRN (18:39)
[2021-04-14 19:22] VITALS: BP 112/63
[2021-04-14] MEDS: clozapine 25mg tablet PO SCH (20:29)
[2021-04-14] MEDS: lithium carbonate 150mg capsule PO SCH (20:30)
[2021-04-14] MEDS: clozapine 100mg tablet PO SCH (20:30)
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
[2021-04-15] MEDS: cephalexin 500mg capsule PO SCH ×4 (02:00→20:35)
[2021-04-15 07:56] VITALS: BP 116/65
[2021-04-15] MEDS: docusate sod 100mg capsule PO SCH (08:15)
[2021-04-15] MEDS: diazepam 5mg tablet PO SCH ×2 (08:15→12:45)
[2021-04-15] MEDS: lactobacillus rhamnosus 10,000 MMU CELLS/CAPSULE PO SCH ×2 (08:15→20:35)
[2021-04-15] MEDS: haloperidol 5mg tablet PO SCH ×2 (08:15→17:15)
[2021-04-15] MEDS: lurasidone 60mg tablet PO SCH ×2 (08:15→17:43)
[2021-04-15] MEDS: pantoprazole 40mg Tablet.DR PO SCH (08:15)
[2021-04-15] MEDS: fluvoxamine 25 MG tablet PO SCH (08:16)
[2021-04-15] MEDS: cholecalciferol (vitamin D3) 1,000 unit (25mcg) tablet PO SCH (08:16)
[2021-04-15] MEDS: carbamide peroxide 15ml bottle EACH EAR SCH ×2 (08:17→20:36)
[2021-04-15 08:35] LABS: BASOPHILS # (AUTO) 0.1 X10'3 (0-0.2); BASOPHILS % (AUTO) 0.9 % (0-1); EOSINOPHILS # (AUTO) 0.7 X10'3 (0-0.9); EOSINOPHILS % (AUTO) 4.7 % (0-6); HEMATOCRIT 39.5 % (42.0-52.0); LYMPHOCYTES # (AUTO) 3.2 X10'3 (1.1-4.8); MEAN CORPUSCULAR HEMOGLOBIN 29.3 PG (27.0-31.0); MEAN CORPUSCULAR VOLUME 88.9 FL (78-98); MEAN PLATELET VOLUME 6.3 FL (7.4-10.4); MONOCYTES # (AUTO) 2.3 X10'3 (0-0.9); MONOCYTES % (AUTO) 15.6 % (2-12); NEUTROPHILS # (AUTO) 8.3 X10'3 (1.8-7.7); NEUTROPHILS % (AUTO) 56.8 % (42-75); PLATELET COUNT 401 X10'3 (140-440); RED BLOOD COUNT 4.44 X10'6 (4.70-6.10); RED CELL DISTRIBUTION WIDTH 14.8 % (11.5-14.5); WHITE BLOOD COUNT 14.6 X10'3 (4.5-11.0)
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
[2021-04-15] MEDS: NICOTINE POLACRILEX 2 MG LOZENGE BC PRN (17:15)
[2021-04-15 19:00] VITALS: BP 135/87
[2021-04-15] MEDS: lithium carbonate 150mg capsule PO SCH (20:35)
[2021-04-15] MEDS: clozapine 100mg tablet PO SCH (20:35)
[2021-04-15] MEDS: clozapine 25mg tablet PO SCH (20:35)
[2021-04-16] MEDS: cephalexin 500mg capsule PO SCH ×4 (02:00→19:53)
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
[2021-04-16 08:00] VITALS: BP 108/64
[2021-04-16] MEDS: haloperidol 5mg tablet PO SCH ×2 (08:25→17:41)
[2021-04-16] MEDS: lactobacillus rhamnosus 10,000 MMU CELLS/CAPSULE PO SCH ×2 (08:25→19:53)
[2021-04-16] MEDS: diazepam 5mg tablet PO SCH ×2 (08:25→12:13)
[2021-04-16] MEDS: cholecalciferol (vitamin D3) 1,000 unit (25mcg) tablet PO SCH (08:26)
[2021-04-16] MEDS: fluvoxamine 25 MG tablet PO SCH (08:26)
[2021-04-16] MEDS: carbamide peroxide 15ml bottle EACH EAR SCH ×2 (08:26→19:56)
[2021-04-16] MEDS: lurasidone 60mg tablet PO SCH ×2 (08:26→17:41)
[2021-04-16] MEDS: docusate sod 100mg capsule PO SCH (08:26)
[2021-04-16] MEDS: pantoprazole 40mg Tablet.DR PO SCH (08:26)
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
[2021-04-16] MEDS: clozapine 25mg tablet PO SCH (19:53)
[2021-04-16] MEDS: lithium carbonate 150mg capsule PO SCH (19:54)
[2021-04-16] MEDS: clozapine 100mg tablet PO SCH (19:54)
[2021-04-16 20:00] VITALS: BP 125/78
[2021-04-17] MEDS: cephalexin 500mg capsule PO SCH ×4 (02:00→20:00)
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
[2021-04-17] MEDS: pantoprazole 40mg Tablet.DR PO SCH (07:12)
[2021-04-17] MEDS: docusate sod 100mg capsule PO SCH (07:12)
[2021-04-17] MEDS: diazepam 5mg tablet PO SCH ×2 (07:12→12:55)
[2021-04-17] MEDS: lactobacillus rhamnosus 10,000 MMU CELLS/CAPSULE PO SCH ×2 (07:12→19:59)
[2021-04-17] MEDS: cholecalciferol (vitamin D3) 1,000 unit (25mcg) tablet PO SCH (07:12)
[2021-04-17] MEDS: haloperidol 5mg tablet PO SCH ×2 (07:12→16:30)
[2021-04-17] MEDS: lurasidone 60mg tablet PO SCH ×2 (07:12→16:30)
[2021-04-17] MEDS: fluvoxamine 25 MG tablet PO SCH (07:12)
[2021-04-17] MEDS: carbamide peroxide 15ml bottle EACH EAR SCH ×2 (07:13→19:59)
[2021-04-17 07:31] VITALS: BP 108/60
[2021-04-17] MEDS: NICOTINE POLACRILEX 2 MG LOZENGE BC PRN (14:44)
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
[2021-04-17 19:22] VITALS: BP 136/84
[2021-04-17] MEDS: clozapine 25mg tablet PO SCH (20:00)
[2021-04-17] MEDS: lithium carbonate 150mg capsule PO SCH (20:00)
[2021-04-17] MEDS: clozapine 100mg tablet PO SCH (20:01)
[2021-04-18] MEDS: cephalexin 500mg capsule PO SCH ×4 (02:59→20:40)
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
[2021-04-18 08:00] VITALS: BP 93/54
[2021-04-18] MEDS: carbamide peroxide 15ml bottle EACH EAR SCH ×2 (08:00→20:45)
[2021-04-18] MEDS: fluvoxamine 25 MG tablet PO SCH (08:05)
[2021-04-18] MEDS: pantoprazole 40mg Tablet.DR PO SCH (08:06)
[2021-04-18] MEDS: lactobacillus rhamnosus 10,000 MMU CELLS/CAPSULE PO SCH ×2 (08:06→20:41)
[2021-04-18] MEDS: haloperidol 5mg tablet PO SCH ×2 (08:06→17:45)
[2021-04-18] MEDS: docusate sod 100mg capsule PO SCH (08:06)
[2021-04-18] MEDS: cholecalciferol (vitamin D3) 1,000 unit (25mcg) tablet PO SCH (08:06)
[2021-04-18] MEDS: lurasidone 60mg tablet PO SCH ×2 (08:06→17:45)
[2021-04-18] MEDS: diazepam 5mg tablet PO SCH ×2 (08:06→12:13)
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
[2021-04-18 19:35] VITALS: BP 111/67
[2021-04-18] MEDS: clozapine 25mg tablet PO SCH (20:41)
[2021-04-18] MEDS: clozapine 100mg tablet PO SCH (20:41)
[2021-04-18] MEDS: lithium carbonate 150mg capsule PO SCH (20:42)
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
[2021-04-19] MEDS: cephalexin 500mg capsule PO SCH ×4 (02:53→20:00)
[2021-04-19] MEDS: docusate sod 100mg capsule PO SCH (07:49)
[2021-04-19] MEDS: lactobacillus rhamnosus 10,000 MMU CELLS/CAPSULE PO SCH ×2 (07:49→21:02)
[2021-04-19] MEDS: cholecalciferol (vitamin D3) 1,000 unit (25mcg) tablet PO SCH (07:49)
[2021-04-19] MEDS: haloperidol 5mg tablet PO SCH ×2 (07:49→17:24)
[2021-04-19] MEDS: diazepam 5mg tablet PO SCH ×2 (07:49→12:59)
[2021-04-19] MEDS: lurasidone 60mg tablet PO SCH ×2 (07:49→17:24)
[2021-04-19] MEDS: fluvoxamine 25 MG tablet PO SCH (07:50)
[2021-04-19] MEDS: pantoprazole 40mg Tablet.DR PO SCH (07:50)
[2021-04-19 08:00] VITALS: BP 101/38
[2021-04-19] MEDS: carbamide peroxide 15ml bottle EACH EAR SCH ×2 (08:00→20:00)
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
[2021-04-19 19:17] VITALS: BP 132/78
[2021-04-19] MEDS: clozapine 25mg tablet PO SCH (21:01)
[2021-04-19] MEDS: clozapine 100mg tablet PO SCH (21:02)
[2021-04-19] MEDS: lithium carbonate 150mg capsule PO SCH (21:02)
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
[2021-04-20] MEDS: cephalexin 500mg capsule PO SCH ×4 (02:52→20:09)
[2021-04-20 07:00] VITALS: BP 110/60
[2021-04-20] MEDS: cholecalciferol (vitamin D3) 1,000 unit (25mcg) tablet PO SCH (08:04)
[2021-04-20] MEDS: haloperidol 5mg tablet PO SCH ×2 (08:04→17:35)
[2021-04-20] MEDS: diazepam 5mg tablet PO SCH ×2 (08:05→13:07)
[2021-04-20] MEDS: lactobacillus rhamnosus 10,000 MMU CELLS/CAPSULE PO SCH ×2 (08:05→20:10)
[2021-04-20] MEDS: lurasidone 60mg tablet PO SCH ×2 (08:05→17:35)
[2021-04-20] MEDS: fluvoxamine 25 MG tablet PO SCH (08:05)
[2021-04-20] MEDS: docusate sod 100mg capsule PO SCH (08:05)
[2021-04-20] MEDS: pantoprazole 40mg Tablet.DR PO SCH (08:05)
[2021-04-20] MEDS: carbamide peroxide 15ml bottle EACH EAR SCH ×2 (08:06→20:10)
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
[2021-04-20] MEDS: lithium carbonate 150mg capsule PO SCH (20:09)
[2021-04-20] MEDS: clozapine 25mg tablet PO SCH (20:10)
[2021-04-20] MEDS: clozapine 100mg tablet PO SCH (20:10)
[2021-04-20 20:16] VITALS: BP 141/89
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
[2021-04-21] MEDS: cephalexin 500mg capsule PO SCH ×4 (02:00→20:21)
[2021-04-21 07:15] VITALS: BP 121/66
[2021-04-21] MEDS: lactobacillus rhamnosus 10,000 MMU CELLS/CAPSULE PO SCH ×2 (07:44→20:21)
[2021-04-21] MEDS: diazepam 5mg tablet PO SCH ×2 (07:44→12:59)
[2021-04-21] MEDS: haloperidol 5mg tablet PO SCH ×2 (07:44→17:26)
[2021-04-21] MEDS: pantoprazole 40mg Tablet.DR PO SCH (07:44)
[2021-04-21] MEDS: lurasidone 60mg tablet PO SCH ×2 (07:45→17:26)
[2021-04-21] MEDS: docusate sod 100mg capsule PO SCH (07:45)
[2021-04-21] MEDS: fluvoxamine 25 MG tablet PO SCH (07:45)
[2021-04-21] MEDS: cholecalciferol (vitamin D3) 1,000 unit (25mcg) tablet PO SCH (07:45)
[2021-04-21] MEDS: carbamide peroxide 15ml bottle EACH EAR SCH ×2 (07:45→20:22)
--- NOTE | 2021-04-21 09:28 | NUR ---
Reassessment: Pt PO 100% avg regular diet meeting needs. Pt compliant w/ meds. LBM 04/19. No nutrition intervention at this time. Will continue to monitor. Recs: 1. Continue Regular diet as tolerated 2. Bowel care per rx 3. Weekly wts Addendum: 04/21/21 at [address] Amended: Links added.
[2021-04-21 10:24] LABS: BASOPHILS # (AUTO) 0.1 X10'3 (0-0.2); BASOPHILS % (AUTO) 0.8 % (0-1); EOSINOPHILS # (AUTO) 0.7 X10'3 (0-0.9); EOSINOPHILS % (AUTO) 5.8 % (0-6); HEMATOCRIT 41.5 % (42.0-52.0); HEMOGLOBIN 13.8 g/dl (14.0-17.9); LYMPHOCYTES # (AUTO) 2.6 X10'3 (1.1-4.8); LYMPHOCYTES % (AUTO) 21.5 % (21-51); MEAN CORPUSCULAR HEMOGLOBIN 29.9 PG (27.0-31.0); MEAN CORPUSCULAR HGB CONC 33.2 g/dL (33.0-36.5); MEAN CORPUSCULAR VOLUME 90.1 FL (78-98); MEAN PLATELET VOLUME 6.7 FL (7.4-10.4); MONOCYTES # (AUTO) 1.8 X10'3 (0-0.9); MONOCYTES % (AUTO) 14.9 % (2-12); NEUTROPHILS # (AUTO) 6.9 X10'3 (1.8-7.7); PLATELET COUNT 411 X10'3 (140-440); RED BLOOD COUNT 4.61 X10'6 (4.70-6.10); RED CELL DISTRIBUTION WIDTH 15.6 % (11.5-14.5); WHITE BLOOD COUNT 12.1 X10'3 (4.5-11.0)
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
[2021-04-21] MEDS: NICOTINE POLACRILEX 2 MG LOZENGE BC PRN (18:48)
[2021-04-21 19:00] VITALS: BP 126/77
[2021-04-21] MEDS: clozapine 25mg tablet PO SCH (20:21)
[2021-04-21] MEDS: lithium carbonate 150mg capsule PO SCH (20:22)
[2021-04-21] MEDS: clozapine 100mg tablet PO SCH (20:22)
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
[2021-04-22] MEDS: cephalexin 500mg capsule PO SCH ×4 (02:00→20:16)
[2021-04-22] MEDS: lurasidone 60mg tablet PO SCH ×2 (08:16→17:51)
[2021-04-22] MEDS: haloperidol 5mg tablet PO SCH ×2 (08:16→17:51)
[2021-04-22] MEDS: docusate sod 100mg capsule PO SCH (08:16)
[2021-04-22] MEDS: pantoprazole 40mg Tablet.DR PO SCH (08:16)
[2021-04-22] MEDS: fluvoxamine 25 MG tablet PO SCH (08:16)
[2021-04-22] MEDS: cholecalciferol (vitamin D3) 1,000 unit (25mcg) tablet PO SCH (08:16)
[2021-04-22] MEDS: lactobacillus rhamnosus 10,000 MMU CELLS/CAPSULE PO SCH ×2 (08:16→20:17)
[2021-04-22] MEDS: diazepam 5mg tablet PO SCH ×2 (08:16→13:08)
[2021-04-22 08:30] VITALS: BP 116/69
[2021-04-22] MEDS: carbamide peroxide 15ml bottle EACH EAR SCH ×2 (08:44→18:59)
--- NOTE | 2021-04-22 13:13 | NUR ---
PLACEMENT Sent updated notes to [facility] office for placement. NICOLAS Velásquez
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
[2021-04-22 20:00] VITALS: BP 136/94
[2021-04-22] MEDS: clozapine 25mg tablet PO SCH (20:17)
[2021-04-22] MEDS: lithium carbonate 150mg capsule PO SCH (20:17)
[2021-04-22] MEDS: clozapine 100mg tablet PO SCH (20:18)
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
[2021-04-23] MEDS: cephalexin 500mg capsule PO SCH ×4 (02:00→20:05)
[2021-04-23 07:42] VITALS: BP 120/75
[2021-04-23] MEDS: lurasidone 60mg tablet PO SCH ×2 (07:54→17:49)
[2021-04-23] MEDS: diazepam 5mg tablet PO SCH ×2 (07:54→13:04)
[2021-04-23] MEDS: haloperidol 5mg tablet PO SCH ×2 (07:54→17:49)
[2021-04-23] MEDS: pantoprazole 40mg Tablet.DR PO SCH (07:54)
[2021-04-23] MEDS: lactobacillus rhamnosus 10,000 MMU CELLS/CAPSULE PO SCH ×2 (07:55→20:05)
[2021-04-23] MEDS: fluvoxamine 25 MG tablet PO SCH (07:55)
[2021-04-23] MEDS: cholecalciferol (vitamin D3) 1,000 unit (25mcg) tablet PO SCH (07:55)
[2021-04-23] MEDS: docusate sod 100mg capsule PO SCH (07:55)
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
[2021-04-23 20:00] VITALS: BP 121/74
[2021-04-23] MEDS: lithium carbonate 150mg capsule PO SCH (20:05)
[2021-04-23] MEDS: clozapine 100mg tablet PO SCH (20:06)
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
[2021-04-24] MEDS: cephalexin 500mg capsule PO SCH ×4 (02:00→19:59)
[2021-04-24 07:46] VITALS: BP 123/77
[2021-04-24] MEDS: pantoprazole 40mg Tablet.DR PO SCH (08:46)
[2021-04-24] MEDS: lactobacillus rhamnosus 10,000 MMU CELLS/CAPSULE PO SCH ×2 (08:46→19:59)
[2021-04-24] MEDS: diazepam 5mg tablet PO SCH ×2 (08:46→13:28)
[2021-04-24] MEDS: docusate sod 100mg capsule PO SCH (08:47)
[2021-04-24] MEDS: cholecalciferol (vitamin D3) 1,000 unit (25mcg) tablet PO SCH (08:47)
[2021-04-24] MEDS: fluvoxamine 25 MG tablet PO SCH (08:47)
[2021-04-24] MEDS: haloperidol 5mg tablet PO SCH ×2 (08:47→17:30)
[2021-04-24] MEDS: lurasidone 60mg tablet PO SCH ×2 (08:47→17:30)
[2021-04-24] MEDS: NICOTINE POLACRILEX 2 MG LOZENGE BC PRN (13:34)
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
[2021-04-24 19:01] VITALS: BP 144/94
[2021-04-24] MEDS: lithium carbonate 150mg capsule PO SCH (20:00)
[2021-04-24] MEDS: clozapine 100mg tablet PO SCH (20:01)
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
[2021-04-25] MEDS: cephalexin 500mg capsule PO SCH ×2 (03:10→07:45)
[2021-04-25] MEDS: pantoprazole 40mg Tablet.DR PO SCH (07:45)
[2021-04-25] MEDS: lurasidone 60mg tablet PO SCH ×2 (07:45→16:42)
[2021-04-25] MEDS: diazepam 5mg tablet PO SCH ×2 (07:45→12:35)
[2021-04-25] MEDS: lactobacillus rhamnosus 10,000 MMU CELLS/CAPSULE PO SCH ×2 (07:45→19:58)
[2021-04-25] MEDS: haloperidol 5mg tablet PO SCH ×2 (07:45→16:42)
[2021-04-25] MEDS: docusate sod 100mg capsule PO SCH (07:46)
[2021-04-25] MEDS: cholecalciferol (vitamin D3) 1,000 unit (25mcg) tablet PO SCH (07:46)
[2021-04-25] MEDS: fluvoxamine 25 MG tablet PO SCH (07:46)
[2021-04-25 07:48] VITALS: BP 105/58
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
[2021-04-25] MEDS: NICOTINE POLACRILEX 2 MG LOZENGE BC PRN (14:05)
[2021-04-25] MEDS: lithium carbonate 150mg capsule PO SCH (19:59)
[2021-04-25] MEDS: clozapine 100mg tablet PO SCH (20:00)
[2021-04-25 20:32] VITALS: BP 132/84
--- NOTE | 2021-04-26 | NUR ---
Nursing Progress Note: Legal hold: Voluntary Client on involuntary status for DTS Report received from nurse with use of SBAR: SHILO Whitfield Why are they here: here: Patient admitted with suicidal ideation states he is having weird suicidal thoughts but no plan right now. He did have a plan earlier. He states he drinks more than 750 cc of whiskey a day his last drink being the night before his admission. He also has a longstanding history of heroin and meth abuse. He has had a recent significant loss of his significant other. He also feels hopeless with his urostomy bag and difficulties with not making right life choices. Assessment What has happened this shift: Patient was in his room the first part of the shift.He ate snack in the group room and watched the football game. He was med compliant and went to bed. SI/HI: Denies A/VH: Denies Sleep: See sleep assessment. ADL's: Independent Group attendance: N/A Were meds taken: Yes Any med S/E: Denies Mental Status Exam Appearance: Neat and appropriately dressed. Eye contact: Good Behavior: Cooperative, isolates to room most of the day and reads in bed. Speech: Minimal, responds to direct questions. Mood: Euthymic Affect: Congruent with mood. Thought process: Linear Thought Content: Circumstantial. Cognition: A&O X4 Insight: Fair Judgment: Fair Interventions PRN's used: Therapeutic interventions: Maintained a safe and supportive environment, ensured contract for safety, provided clear and simple instructions, provided active listening and positive encouragement, monitored for pain and provided medication as needed, and maintained Q 15min safety checks. Restraints/seclusion/emergency medication: N/A Justification of Continued Inpatient Treatment: Per Dr. Shaw, pt. continues to require a safe and supportive environment. He will discharge home with outpatient recovery when ready.
[2021-04-26 07:14] VITALS: BP 122/66
[2021-04-26] MEDS: pantoprazole 40mg Tablet.DR PO SCH (08:25)
[2021-04-26] MEDS: lactobacillus rhamnosus 10,000 MMU CELLS/CAPSULE PO SCH ×2 (08:25→20:03)
[2021-04-26] MEDS: haloperidol 5mg tablet PO SCH ×2 (08:25→17:51)
[2021-04-26] MEDS: lurasidone 60mg tablet PO SCH ×2 (08:25→17:51)
[2021-04-26] MEDS: cholecalciferol (vitamin D3) 1,000 unit (25mcg) tablet PO SCH (08:25)
[2021-04-26] MEDS: fluvoxamine 25 MG tablet PO SCH (08:25)
[2021-04-26] MEDS: diazepam 5mg tablet PO SCH ×2 (08:25→13:26)
[2021-04-26] MEDS: docusate sod 100mg capsule PO SCH (08:26)
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
[2021-04-26 20:00] VITALS: BP 129/86
[2021-04-26] MEDS: lithium carbonate 150mg capsule PO SCH (20:04)
[2021-04-26] MEDS: clozapine 100mg tablet PO SCH (20:05)
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
[2021-04-27 08:00] VITALS: BP 96/60
[2021-04-27] MEDS: cholecalciferol (vitamin D3) 1,000 unit (25mcg) tablet PO SCH (08:17)
[2021-04-27] MEDS: fluvoxamine 25 MG tablet PO SCH (08:17)
[2021-04-27] MEDS: diazepam 5mg tablet PO SCH ×2 (08:18→13:07)
[2021-04-27] MEDS: docusate sod 100mg capsule PO SCH (08:18)
[2021-04-27] MEDS: pantoprazole 40mg Tablet.DR PO SCH (08:18)
[2021-04-27] MEDS: haloperidol 5mg tablet PO SCH ×2 (08:18→17:33)
[2021-04-27] MEDS: lurasidone 60mg tablet PO SCH ×2 (08:18→17:34)
[2021-04-27] MEDS: lactobacillus rhamnosus 10,000 MMU CELLS/CAPSULE PO SCH ×2 (08:18→20:17)
--- NOTE | 2021-04-27 13:31 | NUR ---
Pt attended group today. Today we constructed Vision Pages/Collages with inspiring words and pictures to inspire and create intention towards things hoped for in the future. Pt. was engaged in the process, he was open and jumped right into the activity. He was friendly to his peers and spent much of the session talking between he and his neighbor about their vision pages. He finished the activity and shared what his page meant to him. He found pictures that inspired him, they mostly consisted of food as he reported he enjoys cooking and eating good food. He was alert and oriented X 4. His thought content and thought process was WNL. He appeared to enjoy himself in the group. He had a calm and positive demeanor that was pleasant to be around. Rhonda Marrero LCSW
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
[2021-04-27] MEDS: clozapine 100mg tablet PO SCH (20:17)
[2021-04-27] MEDS: lithium carbonate 150mg capsule PO SCH (20:18)
[2021-04-27 20:46] VITALS: BP 149/100
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
[2021-04-28] MEDS: fluvoxamine 25 MG tablet PO SCH (07:48)
[2021-04-28] MEDS: lurasidone 60mg tablet PO SCH ×2 (07:48→17:36)
[2021-04-28] MEDS: haloperidol 5mg tablet PO SCH ×2 (07:48→17:36)
[2021-04-28] MEDS: cholecalciferol (vitamin D3) 1,000 unit (25mcg) tablet PO SCH (07:48)
[2021-04-28] MEDS: pantoprazole 40mg Tablet.DR PO SCH (07:48)
[2021-04-28] MEDS: lactobacillus rhamnosus 10,000 MMU CELLS/CAPSULE PO SCH ×2 (07:48→20:56)
[2021-04-28] MEDS: diazepam 5mg tablet PO SCH ×2 (07:49→13:11)
[2021-04-28] MEDS: docusate sod 100mg capsule PO SCH (07:49)
[2021-04-28 08:00] VITALS: BP 106/64
[2021-04-28 10:41] LABS: BASOPHILS # (AUTO) 0.1 X10'3 (0-0.2); BASOPHILS % (AUTO) 0.7 % (0-1); EOSINOPHILS # (AUTO) 0.6 X10'3 (0-0.9); EOSINOPHILS % (AUTO) 3.8 % (0-6); HEMATOCRIT 45.9 % (42.0-52.0); HEMOGLOBIN 14.8 g/dl (14.0-17.9); LYMPHOCYTES # (AUTO) 4.2 X10'3 (1.1-4.8); LYMPHOCYTES % (AUTO) 27.9 % (21-51); MEAN CORPUSCULAR HEMOGLOBIN 29.3 PG (27.0-31.0); MEAN CORPUSCULAR HGB CONC 32.1 g/dL (33.0-36.5); MEAN PLATELET VOLUME 7.8 FL (7.4-10.4); MONOCYTES # (AUTO) 1.6 X10'3 (0-0.9); MONOCYTES % (AUTO) 10.4 % (2-12); NEUTROPHILS # (AUTO) 8.5 X10'3 (1.8-7.7); NEUTROPHILS % (AUTO) 57.2 % (42-75); PLATELET COUNT 446 X10'3 (140-440); RED BLOOD COUNT 5.04 X10'6 (4.70-6.10); RED CELL DISTRIBUTION WIDTH 15.8 % (11.5-14.5)
--- NOTE | 2021-04-28 11:12 | NUR ---
F/u 04/28: Pt PO 100% avg regular diet meeting needs. LBM 04/27. No nutrition intervention at this time. Will continue to monitor. Recs: 1. Continue Regular diet as tolerated 2. Bowel care per rx 3. Weekly wts Addendum: 04/28/21 at [address] Amended: Links added.
--- NOTE | 2021-04-28 14:03 | NUR ---
Pt. attended group today. We talking about developing coping skills. We mostly talked about grounding and this General Surgery Physician Assistant lead different grounding exercises such as 478 breathing techniques, 33852 grounding technique. Pt engaged well in the group and with his peers. He was open and friendly. He engaged with the topic though at times his thought process would get a bit tangential and his thought content possibly contained some delusional content. He participated in the grounding techniques and reported that he enjoyed them. His demeanor was calm, compliant and pleasant to work with. Rhonda Marrero LCSW
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
[2021-04-28 19:00] VITALS: BP 120/93
[2021-04-28] MEDS: NICOTINE POLACRILEX 2 MG LOZENGE BC PRN (20:55)
[2021-04-28] MEDS: lithium carbonate 150mg capsule PO SCH (20:55)
[2021-04-28] MEDS: clozapine 100mg tablet PO SCH (20:55)
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
[2021-04-29 07:05] VITALS: BP 124/71
[2021-04-29] MEDS: cholecalciferol (vitamin D3) 1,000 unit (25mcg) tablet PO SCH (07:39)
[2021-04-29] MEDS: diazepam 5mg tablet PO SCH ×2 (07:39→12:30)
[2021-04-29] MEDS: haloperidol 5mg tablet PO SCH ×2 (07:40→16:50)
[2021-04-29] MEDS: pantoprazole 40mg Tablet.DR PO SCH (07:40)
[2021-04-29] MEDS: fluvoxamine 25 MG tablet PO SCH (07:40)
[2021-04-29] MEDS: lactobacillus rhamnosus 10,000 MMU CELLS/CAPSULE PO SCH ×2 (07:40→19:40)
[2021-04-29] MEDS: lurasidone 60mg tablet PO SCH ×2 (07:40→16:50)
[2021-04-29] MEDS: docusate sod 100mg capsule PO SCH (07:40)
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
[2021-04-29 19:00] VITALS: BP 120/66
[2021-04-29] MEDS: clozapine 100mg tablet PO SCH (20:01)
[2021-04-29] MEDS: lithium carbonate 150mg capsule PO SCH (20:01)
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
[2021-04-30] MEDS: pantoprazole 40mg Tablet.DR PO SCH (07:54)
[2021-04-30] MEDS: haloperidol 5mg tablet PO SCH ×2 (07:54→17:46)
[2021-04-30] MEDS: lurasidone 60mg tablet PO SCH ×2 (07:54→17:46)
[2021-04-30] MEDS: diazepam 5mg tablet PO SCH ×2 (07:54→12:51)
[2021-04-30] MEDS: lactobacillus rhamnosus 10,000 MMU CELLS/CAPSULE PO SCH ×2 (07:54→20:16)
[2021-04-30] MEDS: cholecalciferol (vitamin D3) 1,000 unit (25mcg) tablet PO SCH (07:55)
[2021-04-30] MEDS: fluvoxamine 25 MG tablet PO SCH (07:55)
[2021-04-30] MEDS: docusate sod 100mg capsule PO SCH (07:55)
[2021-04-30 08:00] VITALS: BP 119/74
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
[2021-04-30 20:00] VITALS: BP 179/104
[2021-04-30] MEDS: clozapine 100mg tablet PO SCH (20:15)
[2021-04-30] MEDS: lithium carbonate 150mg capsule PO SCH (20:16)
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
[2021-05-01 08:00] VITALS: BP 114/67
[2021-05-01] MEDS: fluvoxamine 25 MG tablet PO SCH (09:06)
[2021-05-01] MEDS: pantoprazole 40mg Tablet.DR PO SCH (09:07)
[2021-05-01] MEDS: lurasidone 60mg tablet PO SCH ×2 (09:07→17:54)
[2021-05-01] MEDS: cholecalciferol (vitamin D3) 1,000 unit (25mcg) tablet PO SCH (09:07)
[2021-05-01] MEDS: haloperidol 5mg tablet PO SCH ×2 (09:07→17:54)
[2021-05-01] MEDS: docusate sod 100mg capsule PO SCH (09:07)
[2021-05-01] MEDS: diazepam 5mg tablet PO SCH ×2 (09:07→12:39)
[2021-05-01] MEDS: lactobacillus rhamnosus 10,000 MMU CELLS/CAPSULE PO SCH ×2 (09:07→20:11)
[2021-05-01] MEDS: NICOTINE POLACRILEX 2 MG LOZENGE BC PRN (11:38)
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
[2021-05-01 20:00] VITALS: BP 132/89
[2021-05-01] MEDS: clozapine 100mg tablet PO SCH (20:11)
[2021-05-01] MEDS: lithium carbonate 150mg capsule PO SCH (20:12)
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
[2021-05-02 08:00] VITALS: BP 110/51
[2021-05-02] MEDS: fluvoxamine 25 MG tablet PO SCH (08:40)
[2021-05-02] MEDS: lurasidone 60mg tablet PO SCH ×2 (08:41→17:44)
[2021-05-02] MEDS: lactobacillus rhamnosus 10,000 MMU CELLS/CAPSULE PO SCH ×2 (08:41→20:14)
[2021-05-02] MEDS: cholecalciferol (vitamin D3) 1,000 unit (25mcg) tablet PO SCH (08:41)
[2021-05-02] MEDS: pantoprazole 40mg Tablet.DR PO SCH (08:41)
[2021-05-02] MEDS: docusate sod 100mg capsule PO SCH (08:41)
[2021-05-02] MEDS: haloperidol 5mg tablet PO SCH ×2 (08:42→17:44)
[2021-05-02] MEDS: diazepam 5mg tablet PO SCH ×2 (08:42→12:32)
[2021-05-02] MEDS: NICOTINE POLACRILEX 2 MG LOZENGE BC PRN (10:41)
--- NOTE | 2021-05-02 13:43 | NUR ---
Pt. attended group. Today we talked about Boundaries, the different kinds and how to communicate our boundaries to others. Pt. engaged in the group well today. He listened intently to his peers and this Systems Testing Laboratory Technician, he shared when appropriate about his own issues around boundaries with his family. He reported that he struggles with his family because he feels that they can become very invasive at times. He doesn't know how to deal with this when it happens. He was alert and oriented X 4. His thought content and thought process was WNL. His demeanor was calm and compliant. He is pleasant to others and is easy to work with. He appears to enjoy the group. Rhonda Marrero LCSW
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
[2021-05-02 19:00] VITALS: BP 152/100
[2021-05-02] MEDS: lithium carbonate 150mg capsule PO SCH (20:14)
[2021-05-02] MEDS: clozapine 100mg tablet PO SCH (20:15)
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
[2021-05-03 08:00] VITALS: BP 118/75
[2021-05-03] MEDS: fluvoxamine 25 MG tablet PO SCH (08:01)
[2021-05-03] MEDS: lurasidone 60mg tablet PO SCH ×2 (08:02→17:40)
[2021-05-03] MEDS: haloperidol 5mg tablet PO SCH ×2 (08:02→17:40)
[2021-05-03] MEDS: docusate sod 100mg capsule PO SCH (08:02)
[2021-05-03] MEDS: cholecalciferol (vitamin D3) 1,000 unit (25mcg) tablet PO SCH (08:02)
[2021-05-03] MEDS: pantoprazole 40mg Tablet.DR PO SCH (08:02)
[2021-05-03] MEDS: diazepam 5mg tablet PO SCH ×2 (08:02→13:03)
[2021-05-03] MEDS: lactobacillus rhamnosus 10,000 MMU CELLS/CAPSULE PO SCH ×2 (08:02→20:02)
[2021-05-03] MEDS: chlorproMAZINE 25mg tablet PO PRN (10:57)
[2021-05-03] MEDS: NICOTINE POLACRILEX 2 MG LOZENGE BC PRN (10:57)
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
[2021-05-03 20:00] VITALS: BP 147/85
[2021-05-03] MEDS: lithium carbonate 150mg capsule PO SCH (20:03)
[2021-05-03] MEDS: clozapine 100mg tablet PO SCH (20:03)
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
[2021-05-04 07:47] VITALS: BP 128/62
[2021-05-04] MEDS: cholecalciferol (vitamin D3) 1,000 unit (25mcg) tablet PO SCH (07:55)
[2021-05-04] MEDS: lurasidone 60mg tablet PO SCH ×2 (07:55→17:03)
[2021-05-04] MEDS: lactobacillus rhamnosus 10,000 MMU CELLS/CAPSULE PO SCH ×2 (07:55→20:01)
[2021-05-04] MEDS: diazepam 5mg tablet PO SCH ×2 (07:55→12:00)
[2021-05-04] MEDS: haloperidol 5mg tablet PO SCH ×2 (07:55→17:03)
[2021-05-04] MEDS: docusate sod 100mg capsule PO SCH (07:55)
[2021-05-04] MEDS: fluvoxamine 25 MG tablet PO SCH (07:55)
[2021-05-04] MEDS: pantoprazole 40mg Tablet.DR PO SCH (07:55)
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
[2021-05-04] MEDS: clozapine 100mg tablet PO SCH (20:03)
[2021-05-04] MEDS: lithium carbonate 150mg capsule PO SCH (20:05)
[2021-05-04 20:39] VITALS: BP 130/79
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
[2021-05-05 07:29] VITALS: BP 120/71
[2021-05-05] MEDS: cholecalciferol (vitamin D3) 1,000 unit (25mcg) tablet PO SCH (08:21)
[2021-05-05] MEDS: fluvoxamine 25 MG tablet PO SCH (08:21)
[2021-05-05] MEDS: haloperidol 5mg tablet PO SCH ×2 (08:21→18:00)
[2021-05-05] MEDS: lactobacillus rhamnosus 10,000 MMU CELLS/CAPSULE PO SCH ×2 (08:21→21:08)
[2021-05-05] MEDS: diazepam 5mg tablet PO SCH ×2 (08:22→13:02)
[2021-05-05] MEDS: lurasidone 60mg tablet PO SCH ×2 (08:22→17:59)
[2021-05-05] MEDS: docusate sod 100mg capsule PO SCH (08:22)
[2021-05-05] MEDS: pantoprazole 40mg Tablet.DR PO SCH (08:22)
[2021-05-05] MEDS: NICOTINE POLACRILEX 2 MG LOZENGE BC PRN ×2 (08:26→14:51)
--- NOTE | 2021-05-05 09:57 | NUR ---
Pt. attended group today. We talked about Communication today focusing on how to utilize I messages. This Tuber Machine Operator shared how to create an I message and then we practiced writing them on the board. Pt was quiet today in group. He declined sharing about his family issues that he reported he needed help with. He appeared to be sleepy and lethargic in group. His demeanor was calm and compliant. Rhonda Marrero LCSW
[2021-05-05 10:14] LABS: BASOPHILS # (AUTO) 0.1 X10'3 (0-0.2); BASOPHILS % (AUTO) 0.7 % (0-1); EOSINOPHILS # (AUTO) 0.5 X10'3 (0-0.9); EOSINOPHILS % (AUTO) 3.5 % (0-6); HEMATOCRIT 43.6 % (42.0-52.0); HEMOGLOBIN 14.5 g/dl (14.0-17.9); LYMPHOCYTES # (AUTO) 3.2 X10'3 (1.1-4.8); LYMPHOCYTES % (AUTO) 23.3 % (21-51); MEAN CORPUSCULAR HEMOGLOBIN 30.1 PG (27.0-31.0); MEAN CORPUSCULAR HGB CONC 33.3 g/dL (33.0-36.5); MEAN CORPUSCULAR VOLUME 90.5 FL (78-98); MEAN PLATELET VOLUME 7.1 FL (7.4-10.4); MONOCYTES # (AUTO) 2.2 X10'3 (0-0.9); MONOCYTES % (AUTO) 15.7 % (2-12); NEUTROPHILS # (AUTO) 7.9 X10'3 (1.8-7.7); NEUTROPHILS % (AUTO) 56.8 % (42-75); PLATELET COUNT 375 X10'3 (140-440); RED BLOOD COUNT 4.82 X10'6 (4.70-6.10); RED CELL DISTRIBUTION WIDTH 15.6 % (11.5-14.5); WHITE BLOOD COUNT 13.9 X10'3 (4.5-11.0)
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
--- NOTE | 2021-05-05 14:30 | NUR ---
F/u 05/05: Pt PO 100% avg regular diet meeting needs. LBM 05/03. No nutrition intervention at this time. Will continue to monitor. Recs: 1. Continue Regular diet as tolerated 2. Bowel care per rx 3. Weekly wts Addendum: 05/05/21 at [address] Amended: Links added.
[2021-05-05 20:00] VITALS: BP 130/85
[2021-05-05] MEDS: lithium carbonate 150mg capsule PO SCH (21:08)
[2021-05-05] MEDS: clozapine 100mg tablet PO SCH (21:09)
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
[2021-05-06 07:35] VITALS: BP 105/61
[2021-05-06] MEDS: lactobacillus rhamnosus 10,000 MMU CELLS/CAPSULE PO SCH ×2 (08:07→20:21)
[2021-05-06] MEDS: lurasidone 60mg tablet PO SCH ×2 (08:07→17:37)
[2021-05-06] MEDS: pantoprazole 40mg Tablet.DR PO SCH (08:07)
[2021-05-06] MEDS: diazepam 5mg tablet PO SCH ×2 (08:07→12:19)
[2021-05-06] MEDS: haloperidol 5mg tablet PO SCH ×2 (08:07→17:37)
[2021-05-06] MEDS: fluvoxamine 25 MG tablet PO SCH (08:08)
[2021-05-06] MEDS: cholecalciferol (vitamin D3) 1,000 unit (25mcg) tablet PO SCH (08:08)
[2021-05-06] MEDS: docusate sod 100mg capsule PO SCH (08:08)
--- NOTE | 2021-05-06 11:16 | NUR ---
INTERVIEW WITH JAVIER ON Sun05/09/21 Vishnu has a phone interview with Trice Escalante on Sunday05/09/21 at 1 PM. He will need to call Trice at 1 PM, Rhonda Marrero LCSW, will assist him with this. NICOLAS Velásquez
[2021-05-06] MEDS: magnesium hydroxide 30ml (MOM) UD suspension PO PRN (12:35)
[2021-05-06] MEDS: NICOTINE POLACRILEX 2 MG LOZENGE BC PRN (17:37)
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
[2021-05-06 19:30] VITALS: BP 146/97
[2021-05-06] MEDS: clozapine 100mg tablet PO SCH (20:20)
[2021-05-06] MEDS: lithium carbonate 150mg capsule PO SCH (20:21)
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
[2021-05-07 07:31] VITALS: BP 125/71
[2021-05-07] MEDS: haloperidol 5mg tablet PO SCH ×2 (08:59→17:51)
[2021-05-07] MEDS: diazepam 5mg tablet PO SCH ×2 (08:59→12:51)
[2021-05-07] MEDS: lactobacillus rhamnosus 10,000 MMU CELLS/CAPSULE PO SCH ×2 (08:59→20:10)
[2021-05-07] MEDS: cholecalciferol (vitamin D3) 1,000 unit (25mcg) tablet PO SCH (08:59)
[2021-05-07] MEDS: fluvoxamine 25 MG tablet PO SCH (08:59)
[2021-05-07] MEDS: docusate sod 100mg capsule PO SCH (08:59)
[2021-05-07] MEDS: lurasidone 60mg tablet PO SCH ×2 (08:59→17:51)
[2021-05-07] MEDS: pantoprazole 40mg Tablet.DR PO SCH (08:59)
[2021-05-07] MEDS: magnesium hydroxide 30ml (MOM) UD suspension PO PRN (09:05)
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
[2021-05-07] MEDS: NICOTINE POLACRILEX 2 MG LOZENGE BC PRN (15:39)
[2021-05-07] MEDS ORDERED: magnesium citrate 296ml oral solution PO ONE (18:45)
[2021-05-07 19:47] VITALS: BP 127/68
[2021-05-07] MEDS: lithium carbonate 150mg capsule PO SCH (20:10)
[2021-05-07] MEDS: clozapine 100mg tablet PO SCH (20:10)
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
[2021-05-08 07:22] VITALS: BP 121/68
[2021-05-08] MEDS: cholecalciferol (vitamin D3) 1,000 unit (25mcg) tablet PO SCH (08:03)
[2021-05-08] MEDS: fluvoxamine 25 MG tablet PO SCH (08:03)
[2021-05-08] MEDS: lurasidone 60mg tablet PO SCH ×2 (08:04→18:01)
[2021-05-08] MEDS: pantoprazole 40mg Tablet.DR PO SCH (08:04)
[2021-05-08] MEDS: diazepam 5mg tablet PO SCH ×2 (08:04→12:49)
[2021-05-08] MEDS: docusate sod 100mg capsule PO SCH (08:04)
[2021-05-08] MEDS: haloperidol 5mg tablet PO SCH ×2 (08:04→18:01)
[2021-05-08] MEDS: lactobacillus rhamnosus 10,000 MMU CELLS/CAPSULE PO SCH ×2 (08:04→20:24)
[2021-05-08] MEDS: magnesium hydroxide 30ml (MOM) UD suspension PO PRN (15:22)
[2021-05-08] MEDS: NICOTINE POLACRILEX 2 MG LOZENGE BC PRN (15:51)
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
[2021-05-08 19:39] VITALS: BP 146/88
[2021-05-08] MEDS: lithium carbonate 150mg capsule PO SCH (20:21)
[2021-05-08] MEDS: clozapine 100mg tablet PO SCH (20:23)
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
[2021-05-09 07:43] VITALS: BP 114/68
[2021-05-09] MEDS: fluvoxamine 25 MG tablet PO SCH (08:07)
[2021-05-09] MEDS: cholecalciferol (vitamin D3) 1,000 unit (25mcg) tablet PO SCH (08:07)
[2021-05-09] MEDS: docusate sod 100mg capsule PO SCH (08:07)
[2021-05-09] MEDS: lurasidone 60mg tablet PO SCH ×2 (08:08→17:45)
[2021-05-09] MEDS: lactobacillus rhamnosus 10,000 MMU CELLS/CAPSULE PO SCH ×2 (08:08→20:20)
[2021-05-09] MEDS: haloperidol 5mg tablet PO SCH ×2 (08:08→17:45)
[2021-05-09] MEDS: diazepam 5mg tablet PO SCH ×2 (08:08→12:50)
[2021-05-09] MEDS: pantoprazole 40mg Tablet.DR PO SCH (08:08)
--- NOTE | 2021-05-09 14:00 | NUR ---
Pt. attended group today. We talked about hearing voices and read an article about coping strategies. We discussed what coping strategies they had success with in the past. We also talked about what triggers hearing voices as well. We started with scaling their level of voice hearing today by scaling where they fall from 0-10. (0 is low distress and 10 is very disturbing voices). Pt engaged well in the group, he shared appropriately and interacted well with his peers. He shared that he feels he is at a 1-2 and that this is lower then the 5 that he started with. He also shared his triggers and coping mechanisms. He mentioned that his spirituality is a big help to him with managing his symptoms. He was alert and oriented X 4. His thought content and thought process was WNL. His demeanor was calm, compliant and his mood was good. Rhonda Marrero LCSW
--- NOTE | 2021-05-09 14:04 | NUR ---
CASE MANAGEMENT - Pt. met via the phone with Catherine at [facility] for an interview. Catherine will get back to him about whether he has been accepted in a day or two. JETHRO HawkinsW
[2021-05-09] MEDS: NICOTINE POLACRILEX 2 MG LOZENGE BC PRN (14:56)
[2021-05-09] MEDS: magnesium hydroxide 30ml (MOM) UD suspension PO PRN (15:00)
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
[2021-05-09 20:11] VITALS: BP 148/83
[2021-05-09] MEDS: clozapine 100mg tablet PO SCH (20:19)
[2021-05-09] MEDS: lithium carbonate 150mg capsule PO SCH (20:20)
[2021-05-09] MEDS: mag hydrox/Alum hydrox/simeth 30ml oral suspension PO PRN (21:08)
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
[2021-05-10] MEDS: lurasidone 60mg tablet PO SCH ×2 (07:43→16:39)
[2021-05-10] MEDS: docusate sod 100mg capsule PO SCH (07:43)
[2021-05-10] MEDS: pantoprazole 40mg Tablet.DR PO SCH (07:43)
[2021-05-10] MEDS: lactobacillus rhamnosus 10,000 MMU CELLS/CAPSULE PO SCH ×2 (07:43→20:22)
[2021-05-10] MEDS: fluvoxamine 25 MG tablet PO SCH (07:43)
[2021-05-10] MEDS: haloperidol 5mg tablet PO SCH ×2 (07:43→16:39)
[2021-05-10] MEDS: diazepam 5mg tablet PO SCH ×2 (07:43→12:57)
[2021-05-10] MEDS: cholecalciferol (vitamin D3) 1,000 unit (25mcg) tablet PO SCH (07:43)
[2021-05-10 07:53] VITALS: BP 117/58
[2021-05-10] MEDS: NICOTINE POLACRILEX 2 MG LOZENGE BC PRN (14:34)
--- NOTE | 2021-05-10 15:19 | NUR ---
Pt. attended group today. We talked about hearing voices again and continued to read an article about coping strategies. We discussed what coping strategies they had success with in the past and what was one new coping strategy they would like to try. Pt engaged well in the discussion, listened to his peers and this Electrician Assistant and had appropriate things to say about what he wanted to work on in the future in terms of a new coping skill. He was alert and oriented X 4. His thought content tends to focus on moravian content but he has reported that he draws a lot of strength from his spiritual practices. He at one point reported that he does journal with the focus of trying to unite all the religions of the world. He has a burden to see this happen. He was open and friendly to others in the group. He stayed for the entirely of the group and appears to enjoy the socialization and discussion. Rhonda Marrero, CYNTHIA
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
[2021-05-10 19:10] VITALS: BP 140/83
[2021-05-10] MEDS: clozapine 100mg tablet PO SCH (20:25)
[2021-05-10] MEDS: lithium carbonate 150mg capsule PO SCH (20:25)
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
[2021-05-11 07:46] VITALS: BP 130/67
[2021-05-11] MEDS: pantoprazole 40mg Tablet.DR PO SCH (08:15)
[2021-05-11] MEDS: haloperidol 5mg tablet PO SCH ×2 (08:15→17:43)
[2021-05-11] MEDS: cholecalciferol (vitamin D3) 1,000 unit (25mcg) tablet PO SCH (08:15)
[2021-05-11] MEDS: lurasidone 60mg tablet PO SCH ×2 (08:15→17:43)
[2021-05-11] MEDS: lactobacillus rhamnosus 10,000 MMU CELLS/CAPSULE PO SCH ×2 (08:15→20:12)
[2021-05-11] MEDS: docusate sod 100mg capsule PO SCH (08:15)
[2021-05-11] MEDS: diazepam 5mg tablet PO SCH ×2 (08:15→12:22)
[2021-05-11] MEDS: fluvoxamine 25 MG tablet PO SCH (08:15)
[2021-05-11] MEDS: magnesium hydroxide 30ml (MOM) UD suspension PO PRN (10:00)
[2021-05-11 10:46] LABS: BASOPHILS # (AUTO) 0.1 X10'3 (0-0.2); EOSINOPHILS # (AUTO) 0.5 X10'3 (0-0.9); EOSINOPHILS % (AUTO) 3.5 % (0-6); HEMATOCRIT 43.3 % (42.0-52.0); HEMOGLOBIN 14.5 g/dl (14.0-17.9); LYMPHOCYTES # (AUTO) 3.7 X10'3 (1.1-4.8); LYMPHOCYTES % (AUTO) 28.3 % (21-51); MEAN CORPUSCULAR HEMOGLOBIN 29.9 PG (27.0-31.0); MEAN CORPUSCULAR HGB CONC 33.6 g/dL (33.0-36.5); MEAN CORPUSCULAR VOLUME 89.3 FL (78-98); MEAN PLATELET VOLUME 6.9 FL (7.4-10.4); MONOCYTES # (AUTO) 1.9 X10'3 (0-0.9); MONOCYTES % (AUTO) 14.3 % (2-12); NEUTROPHILS % (AUTO) 52.9 % (42-75); PLATELET COUNT 377 X10'3 (140-440); RED BLOOD COUNT 4.85 X10'6 (4.70-6.10); RED CELL DISTRIBUTION WIDTH 15.9 % (11.5-14.5); WHITE BLOOD COUNT 13.2 X10'3 (4.5-11.0)
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
[2021-05-11 19:00] VITALS: BP 150/98
[2021-05-11 19:24] VITALS: BP 150/98
[2021-05-11] MEDS: clozapine 100mg tablet PO SCH (20:13)
[2021-05-11] MEDS: lithium carbonate 150mg capsule PO SCH (20:13)
[2021-05-11] MEDS ORDERED: glycerin ADULT rectal suppository RC PRN (20:55)
[2021-05-11] MEDS ORDERED: bisacodyl 10mg suppository rectal RC PRN (21:05)
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
[2021-05-12 07:34] LABS: BASOPHILS # (AUTO) 0.1 X10'3 (0-0.2); BASOPHILS % (AUTO) 0.9 % (0-1); EOSINOPHILS # (AUTO) 0.7 X10'3 (0-0.9); EOSINOPHILS % (AUTO) 4.9 % (0-6); HEMATOCRIT 43.3 % (42.0-52.0); LYMPHOCYTES # (AUTO) 3.3 X10'3 (1.1-4.8); LYMPHOCYTES % (AUTO) 23.7 % (21-51); MEAN CORPUSCULAR HEMOGLOBIN 29.5 PG (27.0-31.0); MEAN CORPUSCULAR HGB CONC 32.4 g/dL (33.0-36.5); MEAN PLATELET VOLUME 7.8 FL (7.4-10.4); MONOCYTES # (AUTO) 2.2 X10'3 (0-0.9); MONOCYTES % (AUTO) 15.5 % (2-12); NEUTROPHILS # (AUTO) 7.6 X10'3 (1.8-7.7); PLATELET COUNT 367 X10'3 (140-440); RED BLOOD COUNT 4.76 X10'6 (4.70-6.10); RED CELL DISTRIBUTION WIDTH 15.6 % (11.5-14.5); WHITE BLOOD COUNT 13.9 X10'3 (4.5-11.0)
[2021-05-12 08:00] VITALS: BP 140/79
[2021-05-12] MEDS: haloperidol 5mg tablet PO SCH ×2 (08:32→18:16)
[2021-05-12] MEDS: lurasidone 60mg tablet PO SCH ×2 (08:32→18:16)
[2021-05-12] MEDS: docusate sod 100mg capsule PO SCH (08:32)
[2021-05-12] MEDS: lactobacillus rhamnosus 10,000 MMU CELLS/CAPSULE PO SCH ×2 (08:32→20:15)
[2021-05-12] MEDS: pantoprazole 40mg Tablet.DR PO SCH (08:32)
[2021-05-12] MEDS: diazepam 5mg tablet PO SCH ×2 (08:32→12:45)
[2021-05-12] MEDS: cholecalciferol (vitamin D3) 1,000 unit (25mcg) tablet PO SCH (08:32)
[2021-05-12] MEDS: fluvoxamine 25 MG tablet PO SCH (08:32)
[2021-05-12] MEDS: NICOTINE POLACRILEX 2 MG LOZENGE BC PRN ×2 (08:48→18:37)
--- NOTE | 2021-05-12 10:09 | NUR ---
PLACEMENT Called Trice (# [phone]) with [facility] to follow up on Vishnu's interview. Trice reported Vishnu meets their criteria and they would be happy to have him back. He reported he needs to talk to [facility] to find out if they have any beds available. He will apprise specification writer if their is a bed. NICOLAS Velásquez
--- NOTE | 2021-05-12 12:13 | NUR ---
Reassessment: Pt continues with mostly 100% PO intake on regular diet while receiving double protein TID per diet order meeting estimated nutrient needs. LBM 05/12, receiving routine and PRN bowel care. No nutrition intervention implemented at this time. Will continue to follow. Recs: 1. Continue regular diet 2. Double eggs WB, double meat BIDLD per diet order 3. Bowel care per rx 4. Weekly scaled weights Addendum: 05/12/21 at [address] Amended: Links added.
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
[2021-05-12] MEDS: magnesium hydroxide 30ml (MOM) UD suspension PO PRN (18:37)
[2021-05-12 19:00] VITALS: BP 146/98
[2021-05-12] MEDS: lithium carbonate 150mg capsule PO SCH (20:15)
[2021-05-12] MEDS: clozapine 100mg tablet PO SCH (20:17)
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
[2021-05-13] MEDS: lurasidone 60mg tablet PO SCH ×2 (07:56→17:56)
[2021-05-13] MEDS: cholecalciferol (vitamin D3) 1,000 unit (25mcg) tablet PO SCH (07:56)
[2021-05-13] MEDS: docusate sod 100mg capsule PO SCH (07:56)
[2021-05-13] MEDS: fluvoxamine 25 MG tablet PO SCH (07:56)
[2021-05-13] MEDS: diazepam 5mg tablet PO SCH ×2 (07:56→12:47)
[2021-05-13] MEDS: haloperidol 5mg tablet PO SCH ×2 (07:57→17:56)
[2021-05-13] MEDS: pantoprazole 40mg Tablet.DR PO SCH (07:57)
[2021-05-13] MEDS: lactobacillus rhamnosus 10,000 MMU CELLS/CAPSULE PO SCH ×2 (07:57→20:19)
[2021-05-13 08:00] VITALS: BP 134/80
[2021-05-13] MEDS: magnesium hydroxide 30ml (MOM) UD suspension PO PRN (11:36)
[2021-05-13] MEDS: NICOTINE POLACRILEX 2 MG LOZENGE BC PRN (11:37)
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
[2021-05-13 19:00] VITALS: BP 150/104
[2021-05-13] MEDS: lithium carbonate 150mg capsule PO SCH (20:18)
[2021-05-13] MEDS: clozapine 100mg tablet PO SCH (20:18)
[2021-05-13 22:48] VITALS: BP 127/80
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
[2021-05-14 08:00] VITALS: BP 120/55
[2021-05-14] MEDS: diazepam 5mg tablet PO SCH ×2 (08:07→12:42)
[2021-05-14] MEDS: fluvoxamine 25 MG tablet PO SCH (08:07)
[2021-05-14] MEDS: haloperidol 5mg tablet PO SCH ×2 (08:07→18:07)
[2021-05-14] MEDS: lurasidone 60mg tablet PO SCH ×2 (08:07→18:07)
[2021-05-14] MEDS: lactobacillus rhamnosus 10,000 MMU CELLS/CAPSULE PO SCH ×2 (08:07→20:57)
[2021-05-14] MEDS: pantoprazole 40mg Tablet.DR PO SCH (08:07)
[2021-05-14] MEDS: docusate sod 100mg capsule PO SCH (08:07)
[2021-05-14] MEDS: cholecalciferol (vitamin D3) 1,000 unit (25mcg) tablet PO SCH (08:07)
[2021-05-14] MEDS: NICOTINE POLACRILEX 2 MG LOZENGE BC PRN ×2 (08:18→13:24)
[2021-05-14] MEDS: mag hydrox/Alum hydrox/simeth 30ml oral suspension PO PRN (09:38)
[2021-05-14] MEDS: magnesium hydroxide 30ml (MOM) UD suspension PO PRN (13:24)
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
[2021-05-14 19:34] VITALS: BP 137/88
[2021-05-14] MEDS: lithium carbonate 150mg capsule PO SCH (20:57)
[2021-05-14] MEDS: clozapine 100mg tablet PO SCH (20:58)
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
[2021-05-15 08:00] VITALS: BP 117/72
[2021-05-15] MEDS: lurasidone 60mg tablet PO SCH ×2 (08:19→17:34)
[2021-05-15] MEDS: diazepam 5mg tablet PO SCH ×2 (08:19→12:49)
[2021-05-15] MEDS: fluvoxamine 25 MG tablet PO SCH (08:19)
[2021-05-15] MEDS: haloperidol 5mg tablet PO SCH ×2 (08:19→17:34)
[2021-05-15] MEDS: cholecalciferol (vitamin D3) 1,000 unit (25mcg) tablet PO SCH (08:19)
[2021-05-15] MEDS: pantoprazole 40mg Tablet.DR PO SCH (08:19)
[2021-05-15] MEDS: lactobacillus rhamnosus 10,000 MMU CELLS/CAPSULE PO SCH ×2 (08:19→20:25)
[2021-05-15] MEDS: docusate sod 100mg capsule PO SCH (08:19)
[2021-05-15] MEDS: NICOTINE POLACRILEX 2 MG LOZENGE BC PRN ×2 (12:22→17:34)
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
[2021-05-15 20:04] VITALS: BP 137/91
[2021-05-15] MEDS: clozapine 100mg tablet PO SCH (20:25)
[2021-05-15] MEDS: lithium carbonate 150mg capsule PO SCH (20:25)
[2021-05-15] MEDS: magnesium hydroxide 30ml (MOM) UD suspension PO PRN (21:24)
[2021-05-15] MEDS: mag hydrox/Alum hydrox/simeth 30ml oral suspension PO PRN (21:38)
[2021-05-15] MEDS: acetaminophen 325mg tablet PO PRN (23:26)
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
[2021-05-16 07:30] VITALS: BP 128/76
[2021-05-16] MEDS: pantoprazole 40mg Tablet.DR PO SCH (08:11)
[2021-05-16] MEDS: haloperidol 5mg tablet PO SCH ×2 (08:11→17:30)
[2021-05-16] MEDS: lurasidone 60mg tablet PO SCH ×2 (08:11→17:31)
[2021-05-16] MEDS: lactobacillus rhamnosus 10,000 MMU CELLS/CAPSULE PO SCH ×2 (08:11→20:12)
[2021-05-16] MEDS: diazepam 5mg tablet PO SCH ×2 (08:11→12:44)
[2021-05-16] MEDS: docusate sod 100mg capsule PO SCH (08:11)
[2021-05-16] MEDS: fluvoxamine 25 MG tablet PO SCH (08:12)
[2021-05-16] MEDS: cholecalciferol (vitamin D3) 1,000 unit (25mcg) tablet PO SCH (08:12)
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
[2021-05-16 19:41] VITALS: BP 155/89
[2021-05-16] MEDS: clozapine 100mg tablet PO SCH (20:12)
[2021-05-16] MEDS: lithium carbonate 150mg capsule PO SCH (20:12)
[2021-05-16] MEDS: chlorproMAZINE 25mg tablet PO PRN (21:56)
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
[2021-05-17] MEDS: lurasidone 60mg tablet PO SCH ×2 (07:58→17:32)
[2021-05-17] MEDS: docusate sod 100mg capsule PO SCH (07:58)
[2021-05-17] MEDS: cholecalciferol (vitamin D3) 1,000 unit (25mcg) tablet PO SCH (07:58)
[2021-05-17] MEDS: pantoprazole 40mg Tablet.DR PO SCH (07:58)
[2021-05-17] MEDS: diazepam 5mg tablet PO SCH ×2 (07:58→12:31)
[2021-05-17] MEDS: lactobacillus rhamnosus 10,000 MMU CELLS/CAPSULE PO SCH ×2 (07:58→20:09)
[2021-05-17] MEDS: haloperidol 5mg tablet PO SCH ×2 (07:59→17:32)
[2021-05-17] MEDS: fluvoxamine 25 MG tablet PO SCH (07:59)
[2021-05-17 08:00] VITALS: BP 113/69
[2021-05-17] MEDS: NICOTINE POLACRILEX 2 MG LOZENGE BC PRN ×2 (12:33→16:29)
--- NOTE | 2021-05-17 13:36 | NUR ---
Pt. attended group today. The topic today was Preventing a Mental Health Relapse by identifying the triggers, signs and symptoms of an upcoming episode/event so that Pts. can learn to apply coping skills before they get to a bad place with their symptoms.Pt. was in a good mood with a restricted affect. He engaged well in the discussion and participated in writing a relapse prevention plan. He then shared it with the group appropriately. His demeanor was calm and compliant. He was alert and oriented X 4. He spoke a lot about how he enjoys deeper connection with people, not just talking about the weather type of communication. He reported that is the kind of support relationship he enjoys. We talked about how connection is the antidote to addiction. He seemed to like this. His thought process and thought content was WNL. Rhonda Marrero LCSW
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
[2021-05-17 19:00] VITALS: BP 153/110
[2021-05-17] MEDS: chlorproMAZINE 25mg tablet PO PRN (19:38)
[2021-05-17] MEDS: lithium carbonate 150mg capsule PO SCH (20:09)
[2021-05-17] MEDS: clozapine 100mg tablet PO SCH (20:09)
[2021-05-17 20:58] VITALS: BP 139/91
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
[2021-05-18] MEDS: pantoprazole 40mg Tablet.DR PO SCH (07:32)
[2021-05-18] MEDS: haloperidol 5mg tablet PO SCH ×2 (07:32→16:55)
[2021-05-18] MEDS: diazepam 5mg tablet PO SCH ×2 (07:33→12:38)
[2021-05-18] MEDS: fluvoxamine 25 MG tablet PO SCH (07:33)
[2021-05-18] MEDS: lactobacillus rhamnosus 10,000 MMU CELLS/CAPSULE PO SCH ×2 (07:33→20:18)
[2021-05-18] MEDS: cholecalciferol (vitamin D3) 1,000 unit (25mcg) tablet PO SCH (07:33)
[2021-05-18] MEDS: docusate sod 100mg capsule PO SCH (07:33)
[2021-05-18] MEDS: lurasidone 60mg tablet PO SCH ×2 (07:33→16:55)
[2021-05-18 07:40] VITALS: BP 126/74
[2021-05-18] MEDS: NICOTINE POLACRILEX 2 MG LOZENGE BC PRN (13:21)
--- NOTE | 2021-05-18 13:41 | NUR ---
Pt. attended group today. Today we talked about how to Self-Nurture ourselves followed up by doing a collage/visualization page about what they wrote down about places, people and situations that are nurturing. Pt. was a bit quieter than usual in group today but he still engaged well in the group. He took part in the activity and made a collage. His thought content and thought process was WNL. Rhonda Marrero LCSW
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
[2021-05-18 19:25] VITALS: BP 153/110
[2021-05-18 19:27] VITALS: BP 156/89
[2021-05-18] MEDS: lithium carbonate 150mg capsule PO SCH (20:18)
[2021-05-18] MEDS: clozapine 100mg tablet PO SCH (20:18)
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
[2021-05-19 07:28] VITALS: BP 119/81
[2021-05-19] MEDS: fluvoxamine 25 MG tablet PO SCH (08:03)
[2021-05-19] MEDS: cholecalciferol (vitamin D3) 1,000 unit (25mcg) tablet PO SCH (08:04)
[2021-05-19] MEDS: lurasidone 60mg tablet PO SCH ×2 (08:04→17:43)
[2021-05-19] MEDS: haloperidol 5mg tablet PO SCH ×2 (08:04→17:43)
[2021-05-19] MEDS: pantoprazole 40mg Tablet.DR PO SCH (08:04)
[2021-05-19] MEDS: lactobacillus rhamnosus 10,000 MMU CELLS/CAPSULE PO SCH ×2 (08:04→20:09)
[2021-05-19] MEDS: docusate sod 100mg capsule PO SCH (08:04)
[2021-05-19] MEDS: diazepam 5mg tablet PO SCH ×2 (08:05→12:49)
[2021-05-19 10:28] LABS: BASOPHILS # (AUTO) 0.1 X10'3 (0-0.2); BASOPHILS % (AUTO) 0.6 % (0-1); EOSINOPHILS # (AUTO) 0.5 X10'3 (0-0.9); HEMOGLOBIN 14.2 g/dl (14.0-17.9); LYMPHOCYTES # (AUTO) 2.8 X10'3 (1.1-4.8); LYMPHOCYTES % (AUTO) 15.9 % (21-51); MEAN CORPUSCULAR HEMOGLOBIN 30.2 PG (27.0-31.0); MEAN CORPUSCULAR HGB CONC 33.9 g/dL (33.0-36.5); MEAN CORPUSCULAR VOLUME 89.2 FL (78-98); MEAN PLATELET VOLUME 7.3 FL (7.4-10.4); MONOCYTES # (AUTO) 2.5 X10'3 (0-0.9); MONOCYTES % (AUTO) 14.4 % (2-12); NEUTROPHILS # (AUTO) 11.5 X10'3 (1.8-7.7); NEUTROPHILS % (AUTO) 66.1 % (42-75); PLATELET COUNT 366 X10'3 (140-440); RED BLOOD COUNT 4.71 X10'6 (4.70-6.10); RED CELL DISTRIBUTION WIDTH 15.8 % (11.5-14.5); WHITE BLOOD COUNT 17.3 X10'3 (4.5-11.0)
[2021-05-19 11:01] LABS: TOTAL CELLS COUNTED 100
[2021-05-19 11:02] LABS: PLATELET ESTIMATE NORMAL
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
[2021-05-19 19:00] VITALS: BP 152/96
[2021-05-19] MEDS: NICOTINE POLACRILEX 2 MG LOZENGE BC PRN (19:03)
[2021-05-19] MEDS: lithium carbonate 150mg capsule PO SCH (20:08)
[2021-05-19] MEDS: clozapine 100mg tablet PO SCH (20:09)
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
[2021-05-20 07:41] VITALS: BP 122/79
[2021-05-20] MEDS: docusate sod 100mg capsule PO SCH (07:58)
[2021-05-20] MEDS: lurasidone 60mg tablet PO SCH ×2 (07:58→17:50)
[2021-05-20] MEDS: lactobacillus rhamnosus 10,000 MMU CELLS/CAPSULE PO SCH ×2 (07:58→21:31)
[2021-05-20] MEDS: diazepam 5mg tablet PO SCH ×3 (07:58→17:53)
[2021-05-20] MEDS: fluvoxamine 25 MG tablet PO SCH (07:58)
[2021-05-20] MEDS: haloperidol 5mg tablet PO SCH ×2 (07:58→17:51)
[2021-05-20] MEDS: cholecalciferol (vitamin D3) 1,000 unit (25mcg) tablet PO SCH (07:58)
[2021-05-20] MEDS: pantoprazole 40mg Tablet.DR PO SCH (07:58)
[2021-05-20 09:03] LABS: BASOPHILS # (AUTO) 0.2 X10'3 (0-0.2); BASOPHILS % (AUTO) 1.3 % (0-1); EOSINOPHILS # (AUTO) 0.6 X10'3 (0-0.9); EOSINOPHILS % (AUTO) 4.4 % (0-6); HEMATOCRIT 45.6 % (42.0-52.0); HEMOGLOBIN 15.3 g/dl (14.0-17.9); LYMPHOCYTES % (AUTO) 30.8 % (21-51); MEAN CORPUSCULAR HEMOGLOBIN 30.1 PG (27.0-31.0); MEAN CORPUSCULAR HGB CONC 33.5 g/dL (33.0-36.5); MEAN PLATELET VOLUME 7.3 FL (7.4-10.4); MONOCYTES # (AUTO) 1.5 X10'3 (0-0.9); MONOCYTES % (AUTO) 11.7 % (2-12); NEUTROPHILS # (AUTO) 6.8 X10'3 (1.8-7.7); NEUTROPHILS % (AUTO) 51.8 % (42-75); PLATELET COUNT 375 X10'3 (140-440); RED BLOOD COUNT 5.06 X10'6 (4.70-6.10); RED CELL DISTRIBUTION WIDTH 16.2 % (11.5-14.5)
[2021-05-20 09:28] LABS: ALANINE AMINOTRANSFERASE 69 U/L (12-78); ALBUMIN 3.9 G/DL (3.4-5.0); ALKALINE PHOSPHATASE 87 IU/L (46-116); ANION GAP 10 (8-16); ASPARTATE AMINO TRANSFERASE 26 U/L (10-37); BILIRUBIN,TOTAL 0.3 MG/DL (0.1-1.0); BLOOD UREA NITROGEN 19 MG/DL (7-18); CALCIUM 9.3 MG/DL (8.5-10.1); CHLORIDE 107 MMOL/L (99-107); CREATININE 1.19 MG/DL (0.60-1.10); GLUCOSE 183 MG/DL (70-104); POTASSIUM 4.6 MMOL/L (3.5-5.1); SODIUM 142 MMOL/L (135-145); TOTAL PROTEIN 7.9 G/DL (6.4-8.2); eGFR 71 ML/MIN
[2021-05-20] MEDS ORDERED: lurasidone 20mg tablet PO ONE (15:15)
[2021-05-20] MEDS: NICOTINE POLACRILEX 2 MG LOZENGE BC PRN ×2 (15:45→23:13)
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
--- NOTE | 2021-05-20 17:12 | NUR ---
Reassessment: Pt continues with mostly 100% PO intake on regular diet while receiving double protein TID per diet order meeting estimated nutrient needs. LBM 05/18, receiving routine and PRN bowel care. No nutrition intervention implemented at this time. Will continue to follow. Recs: 1. Continue regular diet 2. Double eggs WB, double meat BIDLD per diet order 3. Routine bowel care 4. Weekly scaled weights Addendum: 05/20/21 at [address] Amended: Links added.
[2021-05-20 20:11] VITALS: BP 154/107
[2021-05-20] MEDS: clozapine 100mg tablet PO SCH (21:31)
[2021-05-20] MEDS: lithium carbonate 150mg capsule PO SCH (21:31)
[2021-05-20] MEDS: chlorproMAZINE 25mg tablet PO PRN (22:32)
--- NOTE | 2021-05-21 03:33 | NUR ---
Reassessment: Pt continues with mostly 100% PO intake on regular diet while receiving double protein TID per diet order meeting estimated nutrient needs. LBM 05/18, receiving routine and PRN bowel care. No nutrition intervention implemented at this time. Will continue to follow. Recs: 1. Continue regular diet 2. Double eggs WB, double meat BIDLD per diet order 3. Routine bowel care 4. Weekly scaled weights Activelyambulating in hallways last night and going into the TV room, engaging staff when he was wanting certain meds. Rounding done frequently and patient noted sleeping comfortably.
[2021-05-21] MEDS: fluvoxamine 25 MG tablet PO SCH (08:05)
[2021-05-21] MEDS: diazepam 5mg tablet PO SCH ×3 (08:06→17:49)
[2021-05-21] MEDS: haloperidol 5mg tablet PO SCH ×2 (08:06→17:49)
[2021-05-21] MEDS: docusate sod 100mg capsule PO SCH (08:06)
[2021-05-21] MEDS: lurasidone 20mg tablet PO SCH ×2 (08:06→17:49)
[2021-05-21] MEDS: pantoprazole 40mg Tablet.DR PO SCH (08:06)
[2021-05-21] MEDS: cholecalciferol (vitamin D3) 1,000 unit (25mcg) tablet PO SCH (08:06)
[2021-05-21] MEDS: lactobacillus rhamnosus 10,000 MMU CELLS/CAPSULE PO SCH ×2 (08:06→20:04)
[2021-05-21] MEDS: lurasidone 60mg tablet PO SCH ×2 (08:17→17:49)
[2021-05-21 08:25] VITALS: BP 124/81
[2021-05-21] MEDS: NICOTINE POLACRILEX 2 MG LOZENGE BC PRN (11:45)
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
[2021-05-21] MEDS: lithium carbonate 150mg capsule PO SCH (20:03)
[2021-05-21] MEDS: clozapine 100mg tablet PO SCH (20:03)
[2021-05-21] MEDS: clozapine 25mg tablet PO SCH (20:04)
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
[2021-05-22 07:37] VITALS: BP 111/71
[2021-05-22] MEDS: fluvoxamine 25 MG tablet PO SCH (07:56)
[2021-05-22] MEDS: docusate sod 100mg capsule PO SCH (07:56)
[2021-05-22] MEDS: diazepam 5mg tablet PO SCH ×3 (07:56→17:24)
[2021-05-22] MEDS: haloperidol 5mg tablet PO SCH ×2 (07:56→17:24)
[2021-05-22] MEDS: lactobacillus rhamnosus 10,000 MMU CELLS/CAPSULE PO SCH ×2 (07:56→20:03)
[2021-05-22] MEDS: pantoprazole 40mg Tablet.DR PO SCH (07:56)
[2021-05-22] MEDS: lurasidone 20mg tablet PO SCH ×2 (07:57→17:25)
[2021-05-22] MEDS: cholecalciferol (vitamin D3) 1,000 unit (25mcg) tablet PO SCH (07:57)
[2021-05-22] MEDS: lurasidone 60mg tablet PO SCH ×2 (07:58→17:25)
[2021-05-22] MEDS: NICOTINE POLACRILEX 2 MG LOZENGE BC PRN (09:58)
[2021-05-22] MEDS: magnesium hydroxide 30ml (MOM) UD suspension PO PRN (15:47)
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
[2021-05-22 19:59] VITALS: BP 138/85
[2021-05-22] MEDS: clozapine 100mg tablet PO SCH (20:02)
[2021-05-22] MEDS: clozapine 25mg tablet PO SCH (20:03)
[2021-05-22] MEDS: lithium carbonate 150mg capsule PO SCH (20:03)
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
[2021-05-23 07:44] VITALS: BP 112/70
[2021-05-23] MEDS: cholecalciferol (vitamin D3) 1,000 unit (25mcg) tablet PO SCH (08:19)
[2021-05-23] MEDS: lurasidone 20mg tablet PO SCH ×2 (08:19→17:47)
[2021-05-23] MEDS: fluvoxamine 25 MG tablet PO SCH (08:19)
[2021-05-23] MEDS: haloperidol 5mg tablet PO SCH ×2 (08:19→17:47)
[2021-05-23] MEDS: pantoprazole 40mg Tablet.DR PO SCH (08:19)
[2021-05-23] MEDS: diazepam 5mg tablet PO SCH ×3 (08:19→17:47)
[2021-05-23] MEDS: docusate sod 100mg capsule PO SCH (08:19)
[2021-05-23] MEDS: lurasidone 60mg tablet PO SCH ×2 (08:19→17:47)
[2021-05-23] MEDS: lactobacillus rhamnosus 10,000 MMU CELLS/CAPSULE PO SCH ×2 (08:20→20:03)
[2021-05-23] MEDS: magnesium hydroxide 30ml (MOM) UD suspension PO PRN (09:21)
--- NOTE | 2021-05-23 12:34 | NUR ---
Pt. attended group today. We talked about how we all look at the world differently due to our core beliefs. These core beliefs then inform thoughts and behaviors. Each pt. identified one negative core belief and then wrote out three truths that contradict their negative beliefs to work on thinking differently. Pt was quiet today. He declined sharing with the group his negative core belief but did do the exercise and came up with three truths. He also engaged in the coloring activity - coloring sunglass page and added new core belief positive lenses. It was hard to observe his thought process or thought content as he did not share much of his thoughts today. His demeanor was pleasant, compliant and calm. He was alert and oriented X 4. Rhonda Marrero LCSW
[2021-05-23] MEDS ORDERED: magnesium citrate 296ml oral solution PO ONE (13:55)
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
[2021-05-23] MEDS: NICOTINE POLACRILEX 2 MG LOZENGE BC PRN (18:49)
[2021-05-23] MEDS: docusate sod 250mg capsule PO SCH (20:02)
[2021-05-23] MEDS: lithium carbonate 150mg capsule PO SCH (20:02)
[2021-05-23] MEDS: clozapine 25mg tablet PO SCH (20:03)
[2021-05-23] MEDS: clozapine 100mg tablet PO SCH (20:03)
[2021-05-23 20:15] VITALS: BP 151/90
[2021-05-23] MEDS: acetaminophen 325mg tablet PO PRN (20:23)
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
[2021-05-24 08:00] VITALS: BP 114/64
[2021-05-24] MEDS: docusate sod 250mg capsule PO SCH ×2 (08:10→19:56)
[2021-05-24] MEDS: fluvoxamine 25 MG tablet PO SCH (08:10)
[2021-05-24] MEDS: cholecalciferol (vitamin D3) 1,000 unit (25mcg) tablet PO SCH (08:10)
[2021-05-24] MEDS: diazepam 5mg tablet PO SCH ×3 (08:11→17:05)
[2021-05-24] MEDS: lactobacillus rhamnosus 10,000 MMU CELLS/CAPSULE PO SCH ×2 (08:11→19:56)
[2021-05-24] MEDS: pantoprazole 40mg Tablet.DR PO SCH (08:11)
[2021-05-24] MEDS: lurasidone 20mg tablet PO SCH ×2 (08:11→17:05)
[2021-05-24] MEDS: haloperidol 5mg tablet PO SCH ×2 (08:11→17:05)
[2021-05-24] MEDS: lurasidone 60mg tablet PO SCH ×2 (08:12→17:05)
[2021-05-24] MEDS: NICOTINE POLACRILEX 2 MG LOZENGE BC PRN (09:59)
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
[2021-05-24 19:00] VITALS: BP 155/89
[2021-05-24] MEDS: clozapine 25mg tablet PO SCH (20:00)
[2021-05-24] MEDS: clozapine 100mg tablet PO SCH (20:00)
[2021-05-24] MEDS: lithium carbonate 150mg capsule PO SCH (20:01)
[2021-05-24] MEDS: chlorproMAZINE 25mg tablet PO PRN (20:29)
[2021-05-24] MEDS: acetaminophen 325mg tablet PO PRN (20:48)
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
[2021-05-25 08:00] VITALS: BP 145/96
[2021-05-25] MEDS: diazepam 5mg tablet PO SCH ×3 (08:10→17:28)
[2021-05-25] MEDS: haloperidol 5mg tablet PO SCH ×2 (08:10→17:28)
[2021-05-25] MEDS: pantoprazole 40mg Tablet.DR PO SCH (08:10)
[2021-05-25] MEDS: lactobacillus rhamnosus 10,000 MMU CELLS/CAPSULE PO SCH ×2 (08:10→20:21)
[2021-05-25] MEDS: fluvoxamine 25 MG tablet PO SCH (08:10)
[2021-05-25] MEDS: cholecalciferol (vitamin D3) 1,000 unit (25mcg) tablet PO SCH (08:10)
[2021-05-25] MEDS: lurasidone 20mg tablet PO SCH ×2 (08:10→17:28)
[2021-05-25] MEDS: lurasidone 60mg tablet PO SCH ×2 (08:10→17:28)
[2021-05-25] MEDS: docusate sod 250mg capsule PO SCH ×2 (08:10→20:21)
[2021-05-25] MEDS: acetaminophen 325mg tablet PO PRN ×2 (12:30→17:29)
[2021-05-25] MEDS ORDERED: LITH300T3 PO ×2 (13:34)
[2021-05-25] MEDS ORDERED: TEMA30CA PO (13:34)
[2021-05-25] MEDS ORDERED: CLOZ100T23 PO (13:34)
[2021-05-25] MEDS ORDERED: LURA80TA3 PO (13:34)
[2021-05-25] MEDS ORDERED: CHOL200080 PO (13:34)
[2021-05-25] MEDS ORDERED: HALO5TAB PO (13:34)
[2021-05-25] MEDS ORDERED: COL250C PO (13:34)
[2021-05-25] MEDS ORDERED: DIAZ-351 PO (13:34)
[2021-05-25] MEDS ORDERED: OMEP20TA23 PO (13:34)
[2021-05-25] MEDS ORDERED: CHLO100T16 PO (13:34)
[2021-05-25] MEDS ORDERED: FLUV50TA24 PO (13:34)
[2021-05-25] MEDS: NICOTINE POLACRILEX 2 MG LOZENGE BC PRN ×3 (15:57→19:29)
--- NOTE | 2021-05-25 17:40 | NUR ---
1:1 Art Tx Group continued: Patient remains motivated to complete and share his art work and journaling in group process. He wrote : I am locking up my pain & suffering. I am unlocking "The door to My [place]" ... it's time, I need freedom. I am walking on My Path to Wellness, I will remember to.... keep my head on and stay out of bad water." Patient was able to share freely in group and remained supportive of others. Kasey Fierro MA., [id number], Art Therapist Addendum: 05/25/21 at 1741 by Kasey Fierro SS Amended: Links added.
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
[2021-05-25] MEDS: clozapine 100mg tablet PO SCH (20:19)
[2021-05-25] MEDS: clozapine 25mg tablet PO SCH (20:20)
[2021-05-25] MEDS: lithium carbonate 150mg capsule PO SCH (20:21)
[2021-05-25] MEDS: chlorproMAZINE 25mg tablet PO PRN (20:21)
[2021-05-25 20:58] VITALS: BP_SYST 118; BP_SYST 155; BP_DIAS 107; BP_DIAS 70
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
[2021-05-26] MEDS: diazepam 5mg tablet PO SCH ×3 (07:54→17:14)
[2021-05-26] MEDS: haloperidol 5mg tablet PO SCH ×2 (07:54→17:14)
[2021-05-26] MEDS: lurasidone 60mg tablet PO SCH ×2 (07:54→17:14)
[2021-05-26] MEDS: lurasidone 20mg tablet PO SCH ×2 (07:54→17:14)
[2021-05-26] MEDS: fluvoxamine 25 MG tablet PO SCH (07:54)
[2021-05-26] MEDS: cholecalciferol (vitamin D3) 1,000 unit (25mcg) tablet PO SCH (07:54)
[2021-05-26] MEDS: lactobacillus rhamnosus 10,000 MMU CELLS/CAPSULE PO SCH ×2 (07:54→20:57)
[2021-05-26] MEDS: pantoprazole 40mg Tablet.DR PO SCH (07:54)
[2021-05-26] MEDS: docusate sod 250mg capsule PO SCH ×2 (07:54→20:45)
[2021-05-26 08:48] VITALS: BP 122/70
[2021-05-26 09:32] LABS: BASOPHILS # (AUTO) 0.1 X10'3 (0-0.2); BASOPHILS % (AUTO) 0.6 % (0-1); EOSINOPHILS # (AUTO) 0.4 X10'3 (0-0.9); MEAN CORPUSCULAR HEMOGLOBIN 29.7 PG (27.0-31.0); MEAN CORPUSCULAR HGB CONC 32.7 g/dL (33.0-36.5); MEAN CORPUSCULAR VOLUME 91.1 FL (78-98); MEAN PLATELET VOLUME 7.4 FL (7.4-10.4); MONOCYTES # (AUTO) 1.2 X10'3 (0-0.9); MONOCYTES % (AUTO) 8.6 % (2-12); NEUTROPHILS # (AUTO) 9.1 X10'3 (1.8-7.7); NEUTROPHILS % (AUTO) 65.8 % (42-75); PLATELET COUNT 399 X10'3 (140-440); RED BLOOD COUNT 5.05 X10'6 (4.70-6.10); RED CELL DISTRIBUTION WIDTH 15.6 % (11.5-14.5); WHITE BLOOD COUNT 13.8 X10'3 (4.5-11.0)
[2021-05-26 10:11] LABS: ALANINE AMINOTRANSFERASE 45 U/L (12-78); ALBUMIN 3.8 G/DL (3.4-5.0); ALKALINE PHOSPHATASE 89 IU/L (46-116); ANION GAP 9 (8-16); ASPARTATE AMINO TRANSFERASE 16 U/L (10-37); BILIRUBIN,TOTAL 0.4 MG/DL (0.1-1.0); BLOOD UREA NITROGEN 18 MG/DL (7-18); BUN/CREATININE RATIO 14.8 (5.4-32.0); CALCIUM 9.5 MG/DL (8.5-10.1); CHLORIDE 107 MMOL/L (99-107); CREATININE 1.22 MG/DL (0.60-1.10); GLUCOSE 173 MG/DL (70-104); POTASSIUM 4.2 MMOL/L (3.5-5.1); SODIUM 141 MMOL/L (135-145); TOTAL CARBON DIOXIDE 24.8 MMOL/L (24-32); TOTAL PROTEIN 7.8 G/DL (6.4-8.2); eGFR 69 ML/MIN
[2021-05-26] MEDS: acetaminophen 325mg tablet PO PRN (13:01)
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
[2021-05-26 20:00] VITALS: BP 143/86
[2021-05-26] MEDS: lithium carbonate 150mg capsule PO SCH (20:52)
[2021-05-26] MEDS: clozapine 100mg tablet PO SCH (20:57)
[2021-05-26] MEDS: clozapine 25mg tablet PO SCH (20:59)
[2021-05-26] MEDS: magnesium hydroxide 30ml (MOM) UD suspension PO PRN (21:11)
--- NOTE | 2021-05-27 00:01 | NUR ---
PATIENT LITHIUM LEVEL WAS 1.4. THIS FIRE WATCHMAN ADVISED DR. NIEVES. PER DR. DUMONT THE NOC DOSE OF LITHIUM WAS HELD.
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
[2021-05-27 08:00] VITALS: BP 132/73
[2021-05-27] MEDS: diazepam 5mg tablet PO SCH ×3 (08:32→17:29)
[2021-05-27] MEDS: lurasidone 60mg tablet PO SCH ×2 (08:32→17:28)
[2021-05-27] MEDS: lactobacillus rhamnosus 10,000 MMU CELLS/CAPSULE PO SCH ×2 (08:32→21:10)
[2021-05-27] MEDS: pantoprazole 40mg Tablet.DR PO SCH (08:32)
[2021-05-27] MEDS: docusate sod 250mg capsule PO SCH ×2 (08:32→21:10)
[2021-05-27] MEDS: haloperidol 5mg tablet PO SCH ×2 (08:32→17:29)
[2021-05-27] MEDS: lurasidone 20mg tablet PO SCH ×2 (08:32→17:28)
[2021-05-27] MEDS: fluvoxamine 25 MG tablet PO SCH (08:32)
[2021-05-27] MEDS: cholecalciferol (vitamin D3) 1,000 unit (25mcg) tablet PO SCH (08:32)
[2021-05-27] MEDS: cephalexin 500mg capsule PO SCH ×2 (16:00→16:08)
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
[2021-05-27 19:46] VITALS: BP 140/94
[2021-05-27] MEDS: carbamide peroxide 15ml bottle EACH EAR SCH (20:00)
[2021-05-27] MEDS: clozapine 100mg tablet PO SCH (21:08)
[2021-05-27] MEDS: clozapine 25mg tablet PO SCH (21:09)
[2021-05-27] MEDS: lithium carbonate 150mg capsule PO SCH (21:14)
[2021-05-28] MEDS: cephalexin 500mg capsule PO SCH ×4 (00:08→23:52)
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
[2021-05-28] MEDS: docusate sod 250mg capsule PO SCH ×2 (08:03→20:49)
[2021-05-28] MEDS: diazepam 5mg tablet PO SCH ×3 (08:03→17:49)
[2021-05-28] MEDS: haloperidol 5mg tablet PO SCH ×2 (08:04→16:45)
[2021-05-28] MEDS: fluvoxamine 25 MG tablet PO SCH (08:04)
[2021-05-28] MEDS: cholecalciferol (vitamin D3) 1,000 unit (25mcg) tablet PO SCH (08:04)
[2021-05-28] MEDS: pantoprazole 40mg Tablet.DR PO SCH (08:04)
[2021-05-28] MEDS: carbamide peroxide 15ml bottle EACH EAR SCH ×2 (08:05→20:51)
[2021-05-28] MEDS: lurasidone 20mg tablet PO SCH ×2 (08:05→16:45)
[2021-05-28] MEDS: lactobacillus rhamnosus 10,000 MMU CELLS/CAPSULE PO SCH ×2 (08:05→20:52)
[2021-05-28] MEDS: lurasidone 60mg tablet PO SCH ×2 (08:05→16:45)
[2021-05-28 08:44] VITALS: BP 110/74
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
[2021-05-28 19:13] VITALS: BP 139/88
[2021-05-28] MEDS: clozapine 100mg tablet PO SCH (20:49)
[2021-05-28] MEDS: clozapine 25mg tablet PO SCH (20:50)
[2021-05-28] MEDS: lithium carbonate 150mg capsule PO SCH (20:50)
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
[2021-05-29 08:00] VITALS: BP 119/60
[2021-05-29] MEDS: docusate sod 250mg capsule PO SCH ×2 (08:01→20:26)
[2021-05-29] MEDS: pantoprazole 40mg Tablet.DR PO SCH (08:01)
[2021-05-29] MEDS: haloperidol 5mg tablet PO SCH ×2 (08:01→17:00)
[2021-05-29] MEDS: fluvoxamine 25 MG tablet PO SCH (08:01)
[2021-05-29] MEDS: lurasidone 20mg tablet PO SCH ×2 (08:01→17:00)
[2021-05-29] MEDS: cephalexin 500mg capsule PO SCH ×2 (08:01→17:00)
[2021-05-29] MEDS: lurasidone 60mg tablet PO SCH ×2 (08:01→17:00)
[2021-05-29] MEDS: cholecalciferol (vitamin D3) 1,000 unit (25mcg) tablet PO SCH (08:01)
[2021-05-29] MEDS: lactobacillus rhamnosus 10,000 MMU CELLS/CAPSULE PO SCH ×2 (08:01→20:26)
[2021-05-29] MEDS: diazepam 5mg tablet PO SCH ×3 (08:01→17:00)
[2021-05-29] MEDS: carbamide peroxide 15ml bottle EACH EAR SCH ×2 (11:46→20:30)
[2021-05-29] MEDS: NICOTINE POLACRILEX 2 MG LOZENGE BC PRN ×2 (13:18→18:52)
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
[2021-05-29 19:30] VITALS: BP 148/89
[2021-05-29] MEDS: clozapine 100mg tablet PO SCH (20:26)
[2021-05-29] MEDS: lithium carbonate 150mg capsule PO SCH (20:26)
[2021-05-29] MEDS: clozapine 25mg tablet PO SCH (20:27)
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
[2021-05-30 07:04] VITALS: BP 114/69
[2021-05-30] MEDS: carbamide peroxide 15ml bottle EACH EAR SCH ×2 (08:00→20:28)
[2021-05-30] MEDS: docusate sod 250mg capsule PO SCH ×2 (08:05→20:27)
[2021-05-30] MEDS: lactobacillus rhamnosus 10,000 MMU CELLS/CAPSULE PO SCH ×2 (08:05→20:27)
[2021-05-30] MEDS: fluvoxamine 25 MG tablet PO SCH (08:05)
[2021-05-30] MEDS: lurasidone 20mg tablet PO SCH ×2 (08:06→16:32)
[2021-05-30] MEDS: lurasidone 60mg tablet PO SCH ×2 (08:06→16:32)
[2021-05-30] MEDS: cephalexin 500mg capsule PO SCH ×3 (08:06→16:32)
[2021-05-30] MEDS: haloperidol 5mg tablet PO SCH ×2 (08:06→16:32)
[2021-05-30] MEDS: cholecalciferol (vitamin D3) 1,000 unit (25mcg) tablet PO SCH (08:07)
[2021-05-30] MEDS: pantoprazole 40mg Tablet.DR PO SCH (08:07)
[2021-05-30] MEDS: diazepam 5mg tablet PO SCH ×3 (08:07→17:04)
--- NOTE | 2021-05-30 10:02 | NUR ---
Pt. attended group today. Today's group was about the different communications styles i.e passive, aggressive and assertive. We discussed what the characteristics of each style was. We then discussed where they saw themselves at now and where they would like to be with their communication style. Pt. came in half way through the group and sat and listened for awhile. When he did share it was hard to follow his thoughts, his thought content appeared disorganized today. His overall demeanor was pleasant and compliant. Rhonda Marrero, BANQUET MANAGER
[2021-05-30] MEDS: chlorproMAZINE 25mg tablet PO PRN (11:24)
[2021-05-30] MEDS: NICOTINE POLACRILEX 2 MG LOZENGE BC PRN (14:06)
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
--- NOTE | 2021-05-30 15:24 | NUR ---
Reassessment: Pt continues with mostly 100% PO intake on regular diet while receiving double protein TID per diet order meeting estimated nutrient needs. LB 05/27, receiving routine bowel care. No nutrition intervention implemented at this time. Will continue to follow. Recs: 1. Continue regular diet 2. Double eggs WB, double meat BIDLD per diet order 3. Routine bowel care 4. Weekly scaled weights Addendum: 05/30/21 at [address] Amended: Links added.
[2021-05-30] MEDS ORDERED: LITH300T3 PO (15:49)
[2021-05-30 19:34] VITALS: BP 148/89
[2021-05-30] MEDS: lithium carbonate 150mg capsule PO SCH (20:26)
[2021-05-30] MEDS: clozapine 25mg tablet PO SCH (20:27)
[2021-05-30] MEDS: clozapine 100mg tablet PO SCH (20:27)
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
[2021-05-31] MEDS: lurasidone 60mg tablet PO SCH ×2 (07:50→17:50)
[2021-05-31] MEDS: fluvoxamine 25 MG tablet PO SCH (07:50)
[2021-05-31] MEDS: lactobacillus rhamnosus 10,000 MMU CELLS/CAPSULE PO SCH ×2 (07:50→20:33)
[2021-05-31] MEDS: diazepam 5mg tablet PO SCH ×3 (07:50→17:50)
[2021-05-31] MEDS: haloperidol 5mg tablet PO SCH ×2 (07:50→17:50)
[2021-05-31] MEDS: docusate sod 250mg capsule PO SCH ×2 (07:50→20:33)
[2021-05-31] MEDS: cholecalciferol (vitamin D3) 1,000 unit (25mcg) tablet PO SCH (07:50)
[2021-05-31] MEDS: cephalexin 500mg capsule PO SCH ×4 (07:50→20:34)
[2021-05-31] MEDS: lurasidone 20mg tablet PO SCH ×2 (07:50→17:50)
[2021-05-31] MEDS: pantoprazole 40mg Tablet.DR PO SCH (07:50)
[2021-05-31] MEDS: carbamide peroxide 15ml bottle EACH EAR SCH ×2 (07:51→20:37)
[2021-05-31 08:00] VITALS: BP 108/72
[2021-05-31] MEDS: chlorproMAZINE 25mg tablet PO PRN (16:14)
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
--- NOTE | 2021-05-31 16:33 | NUR ---
Group Art Tx Continued: Patient arrived about 15 minutes late to group however, was able to enter into and complete the activity. Patients central focus and theme surrounded his relationship with both his Father and God. He has a desire for continued relationship, drawing strength from his personal relationship with God. Patient remained quiet, yet able to listen as his peers were sharing during the group process. * Please see the entire overview in [facility] Group notes. Kasey Fierro MA, [employer]S ATTORNEY #[id number] [facility], Art Therapist Addendum: 05/31/21 at 1742 by Kasey Fierro SS Amended: Links added.
--- NOTE | 2021-05-31 17:41 | NUR ---
Group Art Tx Continued: Patient came to group about 15 minutes late, however, was able to quickly enter into and complete the activity. Patients central focus and theme surrounded his relationship with both his Father and God. He has a desire or continued relationship, drawing strength from his personal relationship with God. Patient remained quiet, yet able to listen as his peers were sharing during the group process. *Please refer to the [facility] Case Notes for entire overview. Kasey Fierro MA, [facility] #[id number] [facility], Art Therapist Addendum: 05/31/21 at 1742 by Kasey MALAVE Amended: Links added.
[2021-05-31 19:44] VITALS: BP 152/85
[2021-05-31] MEDS: clozapine 100mg tablet PO SCH (20:33)
[2021-05-31] MEDS: lithium carbonate 150mg capsule PO SCH (20:33)
[2021-05-31] MEDS: clozapine 25mg tablet PO SCH (20:33)
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
[2021-06-01 08:00] VITALS: BP 117/61
[2021-06-01] MEDS: haloperidol 5mg tablet PO SCH (08:04)
[2021-06-01] MEDS: lurasidone 20mg tablet PO SCH ×2 (08:04→17:58)
[2021-06-01] MEDS: docusate sod 250mg capsule PO SCH ×2 (08:04→20:05)
[2021-06-01] MEDS: diazepam 5mg tablet PO SCH ×3 (08:04→17:58)
[2021-06-01] MEDS: lactobacillus rhamnosus 10,000 MMU CELLS/CAPSULE PO SCH ×2 (08:04→20:05)
[2021-06-01] MEDS: fluvoxamine 25 MG tablet PO SCH (08:04)
[2021-06-01] MEDS: cephalexin 500mg capsule PO SCH ×2 (08:04→12:22)
[2021-06-01] MEDS: pantoprazole 40mg Tablet.DR PO SCH (08:04)
[2021-06-01] MEDS: cholecalciferol (vitamin D3) 1,000 unit (25mcg) tablet PO SCH (08:04)
[2021-06-01] MEDS: lurasidone 60mg tablet PO SCH ×2 (08:04→17:58)
[2021-06-01] MEDS: carbamide peroxide 15ml bottle EACH EAR SCH ×2 (08:21→20:05)
[2021-06-01] MEDS ORDERED: haloperidol 5mg tablet PO SCH (13:00)
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
[2021-06-01] MEDS: magnesium hydroxide 30ml (MOM) UD suspension PO PRN (17:12)
--- NOTE | 2021-06-01 17:26 | NUR ---
Medications have been adjusted: Pt's Haldol was increased to 5 mg TID at 0800, 1300, & 1700. Clozaril was increased to 900 mg HS, pt has a new order for Restoril 30 mg HS.
[2021-06-01] MEDS: NICOTINE POLACRILEX 2 MG LOZENGE BC PRN (19:18)
[2021-06-01 19:54] VITALS: BP 155/97
[2021-06-01] MEDS: clozapine 100mg tablet PO SCH (20:03)
[2021-06-01] MEDS: lithium carbonate 150mg capsule PO SCH (20:04)
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
[2021-06-02 07:31] VITALS: BP 105/52
[2021-06-02] MEDS: pantoprazole 40mg Tablet.DR PO SCH (08:08)
[2021-06-02] MEDS: lurasidone 20mg tablet PO SCH ×2 (08:08→17:56)
[2021-06-02] MEDS: diazepam 5mg tablet PO SCH ×3 (08:08→17:55)
[2021-06-02] MEDS: lactobacillus rhamnosus 10,000 MMU CELLS/CAPSULE PO SCH ×2 (08:08→20:04)
[2021-06-02] MEDS: cholecalciferol (vitamin D3) 1,000 unit (25mcg) tablet PO SCH (08:09)
[2021-06-02] MEDS: fluvoxamine 25 MG tablet PO SCH (08:09)
[2021-06-02] MEDS: lurasidone 60mg tablet PO SCH ×2 (08:09→17:56)
[2021-06-02] MEDS: docusate sod 250mg capsule PO SCH ×2 (08:09→20:04)
[2021-06-02] MEDS: carbamide peroxide 15ml bottle EACH EAR SCH ×2 (08:40→20:44)
[2021-06-02 08:45] LABS: BASOPHILS # (AUTO) 0.1 X10'3 (0-0.2); BASOPHILS % (AUTO) 1.2 % (0-1); EOSINOPHILS # (AUTO) 0.4 X10'3 (0-0.9); EOSINOPHILS % (AUTO) 3.9 % (0-6); HEMATOCRIT 42.3 % (42.0-52.0); HEMOGLOBIN 14.7 g/dl (14.0-17.9); LYMPHOCYTES % (AUTO) 27.5 % (21-51); MEAN CORPUSCULAR HEMOGLOBIN 30.4 PG (27.0-31.0); MEAN CORPUSCULAR HGB CONC 34.7 g/dL (33.0-36.5); MEAN CORPUSCULAR VOLUME 87.8 FL (78-98); MEAN PLATELET VOLUME 7.7 FL (7.4-10.4); MONOCYTES # (AUTO) 1.1 X10'3 (0-0.9); MONOCYTES % (AUTO) 9.9 % (2-12); NEUTROPHILS # (AUTO) 6.2 X10'3 (1.8-7.7); NEUTROPHILS % (AUTO) 57.5 % (42-75); PLATELET COUNT 391 X10'3 (140-440); RED BLOOD COUNT 4.82 X10'6 (4.70-6.10); RED CELL DISTRIBUTION WIDTH 15.4 % (11.5-14.5); WHITE BLOOD COUNT 10.8 X10'3 (4.5-11.0)
[2021-06-02] MEDS ORDERED: magnesium citrate 296ml oral solution PO ONE (12:15)
[2021-06-02] MEDS: chlorproMAZINE 25mg tablet PO PRN (12:20)
[2021-06-02] MEDS ORDERED: HALO5TAB PO (13:40)
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
--- NOTE | 2021-06-02 17:04 | NUR ---
Pt reported he had a large BM. Pt is due to have his ears irrigated with warm water tonight and then Debrox drops can be discontinued.
[2021-06-02] MEDS: haloperidol 5mg tablet PO SCH (17:55)
[2021-06-02 19:00] VITALS: BP 144/87
[2021-06-02] MEDS: psyllium seed 3.4 gm packet PO SCH (20:03)
[2021-06-02] MEDS: clozapine 100mg tablet PO SCH (20:03)
[2021-06-02] MEDS: lithium carbonate 150mg capsule PO SCH (20:04)
[2021-06-02] MEDS: temazepam 15mg capsule PO PRN (20:12)
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
[2021-06-03] MEDS: diazepam 5mg tablet PO SCH ×3 (08:03→18:17)
[2021-06-03] MEDS: pantoprazole 40mg Tablet.DR PO SCH (08:03)
[2021-06-03] MEDS: haloperidol 5mg tablet PO SCH ×3 (08:03→16:10)
[2021-06-03] MEDS: docusate sod 250mg capsule PO SCH ×2 (08:03→20:23)
[2021-06-03] MEDS: lurasidone 60mg tablet PO SCH ×2 (08:03→16:10)
[2021-06-03] MEDS: cholecalciferol (vitamin D3) 1,000 unit (25mcg) tablet PO SCH (08:04)
[2021-06-03] MEDS: lactobacillus rhamnosus 10,000 MMU CELLS/CAPSULE PO SCH ×2 (08:04→20:23)
[2021-06-03] MEDS: fluvoxamine 25 MG tablet PO SCH (08:04)
[2021-06-03] MEDS: lurasidone 20mg tablet PO SCH ×2 (08:04→16:10)
[2021-06-03] MEDS: carbamide peroxide 15ml bottle EACH EAR SCH (08:06)
[2021-06-03 08:50] VITALS: BP 119/71
[2021-06-03] MEDS: magnesium hydroxide 30ml (MOM) UD suspension PO PRN (11:22)
[2021-06-03] MEDS: NICOTINE POLACRILEX 2 MG LOZENGE BC PRN (16:10)
[2021-06-03] MEDS: chlorproMAZINE 25mg tablet PO PRN (16:10)
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
[2021-06-03 19:00] VITALS: BP 146/90
[2021-06-03] MEDS: lithium carbonate 150mg capsule PO SCH (20:23)
[2021-06-03] MEDS: clozapine 100mg tablet PO SCH (20:23)
[2021-06-03] MEDS: temazepam 15mg capsule PO PRN (20:23)
[2021-06-03] MEDS: psyllium seed 3.4 gm packet PO SCH (20:29)
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
[2021-06-04] MEDS: diazepam 5mg tablet PO SCH ×3 (07:52→17:24)
[2021-06-04] MEDS: lactobacillus rhamnosus 10,000 MMU CELLS/CAPSULE PO SCH ×2 (07:52→20:00)
[2021-06-04] MEDS: docusate sod 250mg capsule PO SCH ×2 (07:53→20:00)
[2021-06-04] MEDS: lurasidone 60mg tablet PO SCH ×2 (07:53→17:24)
[2021-06-04] MEDS: fluvoxamine 25 MG tablet PO SCH (07:53)
[2021-06-04] MEDS: pantoprazole 40mg Tablet.DR PO SCH (07:53)
[2021-06-04] MEDS: haloperidol 5mg tablet PO SCH ×3 (07:53→17:24)
[2021-06-04] MEDS: cholecalciferol (vitamin D3) 1,000 unit (25mcg) tablet PO SCH (07:53)
[2021-06-04] MEDS: lurasidone 20mg tablet PO SCH ×2 (07:53→17:24)
[2021-06-04 08:33] VITALS: BP 117/70
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
[2021-06-04 19:40] VITALS: BP 129/75
[2021-06-04] MEDS: clozapine 100mg tablet PO SCH (20:00)
[2021-06-04] MEDS: temazepam 15mg capsule PO PRN (20:00)
[2021-06-04] MEDS: lithium carbonate 150mg capsule PO SCH (20:00)
[2021-06-04] MEDS: psyllium seed 3.4 gm packet PO SCH (20:02)
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
[2021-06-05 07:56] VITALS: BP 124/69
[2021-06-05] MEDS: pantoprazole 40mg Tablet.DR PO SCH (08:21)
[2021-06-05] MEDS: haloperidol 5mg tablet PO SCH ×3 (08:21→16:56)
[2021-06-05] MEDS: diazepam 5mg tablet PO SCH ×3 (08:22→17:17)
[2021-06-05] MEDS: lurasidone 20mg tablet PO SCH ×2 (08:22→16:56)
[2021-06-05] MEDS: docusate sod 250mg capsule PO SCH ×2 (08:22→20:24)
[2021-06-05] MEDS: lurasidone 60mg tablet PO SCH ×2 (08:22→16:56)
[2021-06-05] MEDS: cholecalciferol (vitamin D3) 1,000 unit (25mcg) tablet PO SCH (08:23)
[2021-06-05] MEDS: fluvoxamine 25 MG tablet PO SCH (08:23)
[2021-06-05] MEDS: lactobacillus rhamnosus 10,000 MMU CELLS/CAPSULE PO SCH ×2 (08:24→20:24)
--- NOTE | 2021-06-05 12:26 | NUR ---
Placement 2 weeks notes, current [facility] [facility] [employer] sent via [employer] to [facility]. Jayashree Spring, DESK REPORTER Addendum: 06/05/21 at 1227 by Jayashree Spring SS Amended: Links added.
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
[2021-06-05] MEDS: magnesium hydroxide 30ml (MOM) UD suspension PO PRN (16:46)
[2021-06-05 19:16] VITALS: BP 120/73
[2021-06-05] MEDS: psyllium seed 3.4 gm packet PO SCH (20:22)
[2021-06-05] MEDS: lithium carbonate 150mg capsule PO SCH (20:23)
[2021-06-05] MEDS: clozapine 100mg tablet PO SCH (20:24)
[2021-06-05] MEDS: temazepam 15mg capsule PO PRN (20:24)
[2021-06-05] MEDS: chlorproMAZINE 25mg tablet PO PRN (21:34)
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
[2021-06-06 07:35] VITALS: BP 115/67
[2021-06-06] MEDS: lurasidone 60mg tablet PO SCH ×2 (08:05→17:21)
[2021-06-06] MEDS: diazepam 5mg tablet PO SCH ×3 (08:05→17:21)
[2021-06-06] MEDS: fluvoxamine 25 MG tablet PO SCH (08:05)
[2021-06-06] MEDS: haloperidol 5mg tablet PO SCH ×3 (08:05→17:21)
[2021-06-06] MEDS: cholecalciferol (vitamin D3) 1,000 unit (25mcg) tablet PO SCH (08:05)
[2021-06-06] MEDS: lurasidone 20mg tablet PO SCH ×2 (08:05→17:21)
[2021-06-06] MEDS: lactobacillus rhamnosus 10,000 MMU CELLS/CAPSULE PO SCH ×2 (08:06→20:07)
[2021-06-06] MEDS: docusate sod 250mg capsule PO SCH ×2 (08:06→20:07)
[2021-06-06] MEDS: pantoprazole 40mg Tablet.DR PO SCH (08:06)
--- NOTE | 2021-06-06 09:25 | NUR ---
Reassessment: Pt continues with mostly 100% PO intake on regular diet while receiving double protein TID per diet order meeting estimated nutrient needs. LBM 06/03, receiving routine bowel care. No nutrition intervention implemented at this time. Will continue to follow. Recs: 1. Continue regular diet 2. Double eggs WB, double meat BIDLD per diet order 3. Routine bowel care 4. Weekly scaled weights Addendum: 06/06/21 at [address] Amended: Links added.
[2021-06-06] MEDS: magnesium hydroxide 30ml (MOM) UD suspension PO PRN (16:39)
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
[2021-06-06 19:33] VITALS: BP 131/73
[2021-06-06] MEDS: clozapine 100mg tablet PO SCH (20:06)
[2021-06-06] MEDS: psyllium seed 3.4 gm packet PO SCH (20:07)
[2021-06-06] MEDS: chlorproMAZINE 25mg tablet PO PRN (20:07)
[2021-06-06] MEDS: lithium carbonate 150mg capsule PO SCH (20:07)
[2021-06-06] MEDS: temazepam 15mg capsule PO PRN (20:07)
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
[2021-06-07] MEDS: haloperidol 5mg tablet PO SCH ×3 (07:50→17:59)
[2021-06-07] MEDS: lurasidone 20mg tablet PO SCH ×2 (07:50→17:59)
[2021-06-07] MEDS: diazepam 5mg tablet PO SCH ×3 (07:50→17:59)
[2021-06-07] MEDS: fluvoxamine 25 MG tablet PO SCH (07:50)
[2021-06-07] MEDS: docusate sod 250mg capsule PO SCH ×2 (07:50→20:03)
[2021-06-07] MEDS: cholecalciferol (vitamin D3) 1,000 unit (25mcg) tablet PO SCH (07:50)
[2021-06-07] MEDS: pantoprazole 40mg Tablet.DR PO SCH (07:50)
[2021-06-07] MEDS: lactobacillus rhamnosus 10,000 MMU CELLS/CAPSULE PO SCH ×2 (07:50→20:03)
[2021-06-07] MEDS: lurasidone 60mg tablet PO SCH ×2 (07:50→17:59)
[2021-06-07 08:01] VITALS: BP 156/76
[2021-06-07 08:07] VITALS: BP 105/54
[2021-06-07] MEDS: magnesium hydroxide 30ml (MOM) UD suspension PO PRN (11:31)
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
--- NOTE | 2021-06-07 16:38 | NUR ---
Group Art Tx Continued: Patient entered into the group room about 30 minutes into the session. This patient having done the exercise before,chose to remain as an observer during the group process time. Patient remained respectful and appropriate. Patient volunteered [facility] this therapist during clean up. *Please refer to the [facility] Case Notes for entire overview. Kasey Fierro MA, [facility] ATTENDANT #[id number] [facility], Art Therapist Addendum: 06/07/21 at 1639 by Kasey Fierro SS Amended: Links added.
[2021-06-07] MEDS: lithium carbonate 150mg capsule PO SCH (20:02)
[2021-06-07] MEDS: temazepam 15mg capsule PO PRN (20:03)
[2021-06-07] MEDS: clozapine 100mg tablet PO SCH (20:03)
[2021-06-07] MEDS: psyllium seed 3.4 gm packet PO SCH (20:03)
[2021-06-07 20:19] VITALS: BP 118/67
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
[2021-06-08] MEDS: lurasidone 60mg tablet PO SCH ×2 (07:58→17:15)
[2021-06-08] MEDS: lurasidone 20mg tablet PO SCH ×2 (07:58→17:15)
[2021-06-08] MEDS: fluvoxamine 25 MG tablet PO SCH (07:58)
[2021-06-08] MEDS: diazepam 5mg tablet PO SCH ×3 (07:58→17:15)
[2021-06-08] MEDS: lactobacillus rhamnosus 10,000 MMU CELLS/CAPSULE PO SCH ×2 (07:58→20:12)
[2021-06-08] MEDS: pantoprazole 40mg Tablet.DR PO SCH (07:58)
[2021-06-08] MEDS: haloperidol 5mg tablet PO SCH ×3 (07:58→17:15)
[2021-06-08] MEDS: docusate sod 250mg capsule PO SCH ×2 (07:58→20:11)
[2021-06-08] MEDS: cholecalciferol (vitamin D3) 1,000 unit (25mcg) tablet PO SCH (07:58)
[2021-06-08 08:00] VITALS: BP 124/73
--- NOTE | 2021-06-08 14:30 | NUR ---
Group Art Tx, Continued: Patient was late to group because he was taking a shower. Patient did enter the group space and decide to interact as a volunteer by hanging the art works of his peers. He was not able to 'catch up' with the drawing assignment as the group was in the process stage. Patient remained positive and helpful. *Please refer to the [facility] Case Notes for entire overview. Kasey Fierro MA, [employer] #[id number] [facility], Art Therapist Addendum: 06/08/21 at 1648 by Kasey Fierro SS Amended: Links added.
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
[2021-06-08 19:47] VITALS: BP 138/82
[2021-06-08] MEDS: psyllium seed 3.4 gm packet PO SCH (20:11)
[2021-06-08] MEDS: magnesium hydroxide 30ml (MOM) UD suspension PO PRN (20:11)
[2021-06-08] MEDS: chlorproMAZINE 25mg tablet PO PRN (20:12)
[2021-06-08] MEDS: temazepam 15mg capsule PO PRN (20:12)
[2021-06-08] MEDS: clozapine 100mg tablet PO SCH (20:12)
[2021-06-08] MEDS: lithium carbonate 150mg capsule PO SCH (20:12)
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
[2021-06-09] MEDS: lurasidone 20mg tablet PO SCH ×2 (07:33→17:27)
[2021-06-09] MEDS: fluvoxamine 25 MG tablet PO SCH (07:33)
[2021-06-09] MEDS: lurasidone 60mg tablet PO SCH ×2 (07:33→17:27)
[2021-06-09] MEDS: cholecalciferol (vitamin D3) 1,000 unit (25mcg) tablet PO SCH (07:33)
[2021-06-09] MEDS: haloperidol 5mg tablet PO SCH ×3 (07:33→17:27)
[2021-06-09] MEDS: diazepam 5mg tablet PO SCH ×3 (07:33→17:27)
[2021-06-09] MEDS: lactobacillus rhamnosus 10,000 MMU CELLS/CAPSULE PO SCH ×2 (07:33→20:26)
[2021-06-09] MEDS: pantoprazole 40mg Tablet.DR PO SCH (07:33)
[2021-06-09] MEDS: docusate sod 250mg capsule PO SCH ×2 (07:33→20:25)
[2021-06-09 08:00] VITALS: BP 131/80
[2021-06-09 08:19] LABS: BASOPHILS # (AUTO) 0.1 X10'3 (0-0.2); BASOPHILS % (AUTO) 0.7 % (0-1); EOSINOPHILS # (AUTO) 0.4 X10'3 (0-0.9); EOSINOPHILS % (AUTO) 2.9 % (0-6); HEMATOCRIT 45.2 % (42.0-52.0); HEMOGLOBIN 15.1 g/dl (14.0-17.9); LYMPHOCYTES # (AUTO) 2.2 X10'3 (1.1-4.8); LYMPHOCYTES % (AUTO) 16.4 % (21-51); MEAN CORPUSCULAR HEMOGLOBIN 29.7 PG (27.0-31.0); MEAN CORPUSCULAR HGB CONC 33.3 g/dL (33.0-36.5); MEAN CORPUSCULAR VOLUME 89.1 FL (78-98); MEAN PLATELET VOLUME 7.6 FL (7.4-10.4); MONOCYTES % (AUTO) 14.4 % (2-12); NEUTROPHILS # (AUTO) 8.9 X10'3 (1.8-7.7); NEUTROPHILS % (AUTO) 65.6 % (42-75); PLATELET COUNT 373 X10'3 (140-440); RED BLOOD COUNT 5.07 X10'6 (4.70-6.10); RED CELL DISTRIBUTION WIDTH 15.3 % (11.5-14.5); WHITE BLOOD COUNT 13.6 X10'3 (4.5-11.0)
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
[2021-06-09] MEDS: chlorproMAZINE 25mg tablet PO PRN (17:27)
[2021-06-09 19:51] VITALS: BP 122/81
[2021-06-09] MEDS: clozapine 100mg tablet PO SCH (20:25)
[2021-06-09] MEDS: psyllium seed 3.4 gm packet PO SCH (20:25)
[2021-06-09] MEDS: temazepam 15mg capsule PO PRN (20:25)
[2021-06-09] MEDS: lithium carbonate 150mg capsule PO SCH (20:26)
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
[2021-06-10] MEDS: docusate sod 250mg capsule PO SCH ×2 (07:39→20:14)
[2021-06-10] MEDS: fluvoxamine 25 MG tablet PO SCH (07:39)
[2021-06-10] MEDS: lurasidone 20mg tablet PO SCH ×2 (07:39→17:39)
[2021-06-10] MEDS: lurasidone 60mg tablet PO SCH ×2 (07:39→17:39)
[2021-06-10] MEDS: diazepam 5mg tablet PO SCH ×3 (07:39→17:39)
[2021-06-10] MEDS: haloperidol 5mg tablet PO SCH ×3 (07:39→17:39)
[2021-06-10] MEDS: cholecalciferol (vitamin D3) 1,000 unit (25mcg) tablet PO SCH (07:39)
[2021-06-10] MEDS: lactobacillus rhamnosus 10,000 MMU CELLS/CAPSULE PO SCH ×2 (07:39→20:14)
[2021-06-10] MEDS: pantoprazole 40mg Tablet.DR PO SCH (07:40)
[2021-06-10 07:50] VITALS: BP 114/72
[2021-06-10] MEDS: chlorproMAZINE 25mg tablet PO PRN (14:00)
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
[2021-06-10 19:34] VITALS: BP 118/67
[2021-06-10] MEDS: temazepam 15mg capsule PO PRN (20:14)
[2021-06-10] MEDS: clozapine 100mg tablet PO SCH (20:14)
[2021-06-10] MEDS: psyllium seed 3.4 gm packet PO SCH (20:14)
[2021-06-10] MEDS: lithium carbonate 150mg capsule PO SCH (20:14)
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
[2021-06-11] MEDS: haloperidol 5mg tablet PO SCH ×3 (08:06→17:35)
[2021-06-11] MEDS: cholecalciferol (vitamin D3) 1,000 unit (25mcg) tablet PO SCH (08:06)
[2021-06-11] MEDS: lurasidone 20mg tablet PO SCH ×2 (08:06→17:35)
[2021-06-11] MEDS: lactobacillus rhamnosus 10,000 MMU CELLS/CAPSULE PO SCH ×2 (08:06→20:01)
[2021-06-11] MEDS: docusate sod 250mg capsule PO SCH ×2 (08:06→20:00)
[2021-06-11] MEDS: diazepam 5mg tablet PO SCH ×3 (08:06→17:35)
[2021-06-11] MEDS: pantoprazole 40mg Tablet.DR PO SCH (08:06)
[2021-06-11] MEDS: lurasidone 60mg tablet PO SCH ×2 (08:06→17:35)
[2021-06-11] MEDS: fluvoxamine 25 MG tablet PO SCH (08:06)
[2021-06-11 08:14] VITALS: BP 112/69
[2021-06-11] MEDS: magnesium hydroxide 30ml (MOM) UD suspension PO PRN (08:16)
[2021-06-11] MEDS: chlorproMAZINE 25mg tablet PO PRN (16:50)
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
[2021-06-11 20:00] VITALS: BP 123/78
[2021-06-11] MEDS: lithium carbonate 150mg capsule PO SCH (20:01)
[2021-06-11] MEDS: psyllium seed 3.4 gm packet PO SCH (20:01)
[2021-06-11] MEDS: clozapine 100mg tablet PO SCH (20:01)
[2021-06-11] MEDS: temazepam 15mg capsule PO PRN (20:07)
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
[2021-06-12 07:26] VITALS: BP 126/62
[2021-06-12] MEDS: diazepam 5mg tablet PO SCH ×3 (08:15→17:30)
[2021-06-12] MEDS: lurasidone 20mg tablet PO SCH ×2 (08:15→17:30)
[2021-06-12] MEDS: lactobacillus rhamnosus 10,000 MMU CELLS/CAPSULE PO SCH ×2 (08:15→20:15)
[2021-06-12] MEDS: haloperidol 5mg tablet PO SCH ×3 (08:15→17:30)
[2021-06-12] MEDS: pantoprazole 40mg Tablet.DR PO SCH (08:16)
[2021-06-12] MEDS: docusate sod 250mg capsule PO SCH ×2 (08:16→20:15)
[2021-06-12] MEDS: fluvoxamine 25 MG tablet PO SCH (08:16)
[2021-06-12] MEDS: lurasidone 60mg tablet PO SCH ×2 (08:16→17:30)
[2021-06-12] MEDS: cholecalciferol (vitamin D3) 1,000 unit (25mcg) tablet PO SCH (08:16)
[2021-06-12] MEDS: magnesium hydroxide 30ml (MOM) UD suspension PO PRN (10:47)
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
[2021-06-12] MEDS: chlorproMAZINE 25mg tablet PO PRN (18:41)
[2021-06-12 19:13] VITALS: BP 132/82
[2021-06-12] MEDS: lithium carbonate 150mg capsule PO SCH (20:16)
[2021-06-12] MEDS: clozapine 100mg tablet PO SCH (20:17)
[2021-06-12] MEDS: psyllium seed 3.4 gm packet PO SCH (20:18)
[2021-06-12] MEDS: temazepam 15mg capsule PO PRN (20:18)
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
[2021-06-13 07:21] VITALS: BP 127/75
[2021-06-13] MEDS: cholecalciferol (vitamin D3) 1,000 unit (25mcg) tablet PO SCH (08:13)
[2021-06-13] MEDS: pantoprazole 40mg Tablet.DR PO SCH (08:13)
[2021-06-13] MEDS: haloperidol 5mg tablet PO SCH ×3 (08:13→17:27)
[2021-06-13] MEDS: lactobacillus rhamnosus 10,000 MMU CELLS/CAPSULE PO SCH ×2 (08:13→20:07)
[2021-06-13] MEDS: lurasidone 60mg tablet PO SCH ×2 (08:13→17:27)
[2021-06-13] MEDS: lurasidone 20mg tablet PO SCH ×2 (08:13→17:27)
[2021-06-13] MEDS: docusate sod 250mg capsule PO SCH ×2 (08:13→20:08)
[2021-06-13] MEDS: fluvoxamine 25 MG tablet PO SCH (08:13)
[2021-06-13] MEDS: diazepam 5mg tablet PO SCH ×3 (08:13→17:27)
[2021-06-13] MEDS: chlorproMAZINE 25mg tablet PO PRN (11:07)
--- NOTE | 2021-06-13 11:07 | NUR ---
DISCHARGE PLAN-06/16/21 Vishnu has been accepted at [facility] and will get picked up on 06/16/21 at 9 AM by [facility] Public Guardian. NICOLAS Velásquez
--- NOTE | 2021-06-13 14:01 | NUR ---
Reassessment: Pt w/ variable intake, avg 48% x 11 meals on Regular diet w/ double protein TID though noted to be have snacks. Minimum nutrient needs likely being met at this time. [facility] 06/11 receiving routine bowel care. No nutrition intervention implemented at this time. Will continue to follow. Recs: 1. Continue regular diet 2. Double eggs WB, double meat BIDLD per diet order 3. Routine bowel care 4. Weekly scaled weights Addendum: 06/13/21 at [address] Amended: Links added.
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
[2021-06-13] MEDS: psyllium seed 3.4 gm packet PO SCH (20:05)
[2021-06-13] MEDS: clozapine 100mg tablet PO SCH (20:06)
[2021-06-13] MEDS: temazepam 15mg capsule PO PRN (20:07)
[2021-06-13] MEDS: lithium carbonate 150mg capsule PO SCH (20:07)
[2021-06-13 20:09] VITALS: BP 125/82
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
[2021-06-14] MEDS: fluvoxamine 25 MG tablet PO SCH (08:06)
[2021-06-14] MEDS: lactobacillus rhamnosus 10,000 MMU CELLS/CAPSULE PO SCH ×2 (08:06→20:05)
[2021-06-14] MEDS: haloperidol 5mg tablet PO SCH ×3 (08:06→17:43)
[2021-06-14] MEDS: docusate sod 250mg capsule PO SCH ×2 (08:07→20:05)
[2021-06-14] MEDS: lurasidone 20mg tablet PO SCH ×2 (08:07→17:43)
[2021-06-14] MEDS: cholecalciferol (vitamin D3) 1,000 unit (25mcg) tablet PO SCH (08:07)
[2021-06-14] MEDS: pantoprazole 40mg Tablet.DR PO SCH (08:07)
[2021-06-14] MEDS: lurasidone 60mg tablet PO SCH ×2 (08:07→17:43)
[2021-06-14] MEDS: diazepam 5mg tablet PO SCH ×3 (08:07→17:43)
[2021-06-14 08:13] VITALS: BP 138/61
[2021-06-14] MEDS: magnesium hydroxide 30ml (MOM) UD suspension PO PRN (12:15)
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
[2021-06-14] MEDS: psyllium seed 3.4 gm packet PO SCH (20:04)
[2021-06-14] MEDS: clozapine 100mg tablet PO SCH (20:05)
[2021-06-14] MEDS: temazepam 15mg capsule PO PRN (20:06)
[2021-06-14] MEDS: lithium carbonate 150mg capsule PO SCH (20:07)
[2021-06-14 20:14] VITALS: BP 134/88
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
[2021-06-15 08:05] VITALS: BP 128/73
[2021-06-15] MEDS: docusate sod 250mg capsule PO SCH ×2 (08:05→20:33)
[2021-06-15] MEDS: lurasidone 20mg tablet PO SCH ×2 (08:05→17:23)
[2021-06-15] MEDS: pantoprazole 40mg Tablet.DR PO SCH (08:05)
[2021-06-15] MEDS: cholecalciferol (vitamin D3) 1,000 unit (25mcg) tablet PO SCH (08:06)
[2021-06-15] MEDS: haloperidol 5mg tablet PO SCH ×3 (08:07→17:23)
[2021-06-15] MEDS: lurasidone 60mg tablet PO SCH ×2 (08:07→17:23)
[2021-06-15] MEDS: diazepam 5mg tablet PO SCH ×3 (08:07→17:23)
[2021-06-15] MEDS: lactobacillus rhamnosus 10,000 MMU CELLS/CAPSULE PO SCH ×2 (08:07→20:33)
[2021-06-15] MEDS: fluvoxamine 25 MG tablet PO SCH (08:07)
[2021-06-15] MEDS: NICOTINE POLACRILEX 2 MG LOZENGE BC PRN (13:12)
[2021-06-15] MEDS: magnesium hydroxide 30ml (MOM) UD suspension PO PRN (13:26)
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
[2021-06-15 20:00] VITALS: BP 142/92
[2021-06-15] MEDS: psyllium seed 3.4 gm packet PO SCH (20:33)
[2021-06-15] MEDS: temazepam 15mg capsule PO PRN (20:33)
[2021-06-15] MEDS: clozapine 100mg tablet PO SCH (20:34)
[2021-06-15] MEDS: lithium carbonate 150mg capsule PO SCH (20:34)
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
[2021-06-16 07:29] LABS: BASOPHILS # (AUTO) 0.1 X10'3 (0-0.2); BASOPHILS % (AUTO) 0.7 % (0-1); EOSINOPHILS # (AUTO) 0.4 X10'3 (0-0.9); EOSINOPHILS % (AUTO) 2.9 % (0-6); HEMATOCRIT 46.9 % (42.0-52.0); HEMOGLOBIN 15.9 g/dl (14.0-17.9); LYMPHOCYTES # (AUTO) 3.6 X10'3 (1.1-4.8); MEAN CORPUSCULAR HEMOGLOBIN 29.8 PG (27.0-31.0); MEAN CORPUSCULAR HGB CONC 33.8 g/dL (33.0-36.5); MEAN PLATELET VOLUME 7.5 FL (7.4-10.4); MONOCYTES # (AUTO) 1.5 X10'3 (0-0.9); NEUTROPHILS # (AUTO) 6.9 X10'3 (1.8-7.7); NEUTROPHILS % (AUTO) 55.4 % (42-75); PLATELET COUNT 355 X10'3 (140-440); RED BLOOD COUNT 5.32 X10'6 (4.70-6.10); RED CELL DISTRIBUTION WIDTH 15.2 % (11.5-14.5); WHITE BLOOD COUNT 12.4 X10'3 (4.5-11.0)
[2021-06-16 07:33] VITALS: BP 121/74
[2021-06-16] MEDS: fluvoxamine 25 MG tablet PO SCH (07:55)
[2021-06-16] MEDS: lurasidone 20mg tablet PO SCH (07:55)
[2021-06-16] MEDS: cholecalciferol (vitamin D3) 1,000 unit (25mcg) tablet PO SCH (07:55)
[2021-06-16] MEDS: pantoprazole 40mg Tablet.DR PO SCH (07:55)
[2021-06-16] MEDS: haloperidol 5mg tablet PO SCH (07:55)
[2021-06-16] MEDS: docusate sod 250mg capsule PO SCH (07:55)
[2021-06-16] MEDS: lurasidone 60mg tablet PO SCH (07:55)
[2021-06-16] MEDS: lactobacillus rhamnosus 10,000 MMU CELLS/CAPSULE PO SCH (07:56)
[2021-06-16] MEDS: diazepam 5mg tablet PO SCH (07:56)
--- NOTE | 2021-06-16 09:30 | NUR ---
Pt. discharged to [facility] in [place], pt. picked up by conservator and driven in car. Pt. is A&Ox4 and in no apparent distress. Pt. discharged with all belongings and valuables and medications. Pt. verbalized understanding of medications regimen and f/u plan. Pt. denies SI/HI, A/V hallucinations.
== END 2021-06-16 09:30 | disposition home or self-care (01) | DRG 750 ==
LOC: ADULT MH 19:01
PROVIDERS: ADMIT Psychiatry & Neurology Psychiatry; ATTEND Psychiatry & Neurology Psychiatry
DX: F25.0 Schizoaffective disorder, bipolar type (principal); D72.829 Elevated white blood cell count, unspecified; F41.1 Generalized anxiety disorder; F10.20 Alcohol dependence, uncomplicated; Z20.822 Contact with and (suspected) exposure to COVID-19; F12.20 Cannabis dependence, uncomplicated; E55.9 Vitamin D deficiency, unspecified; K02.9 Dental caries, unspecified; R00.0 Tachycardia, unspecified; K59.00 Constipation, unspecified; F32.9 Major depressive disorder, single episode, unspecified; N28.9 Disorder of kidney and ureter, unspecified; F17.200 Nicotine dependence, unspecified, uncomplicated; F40.10 Social phobia, unspecified; I10 Essential (primary) hypertension; K21.9 Gastro-esophageal reflux disease without esophagitis; Z87.01 Personal history of pneumonia (recurrent); Z90.81 Acquired absence of spleen; Z71.6 Tobacco abuse counseling; Z79.899 Other long term (current) drug therapy
CPT/HCPCS: 36415; 71045; 76536; 80053; 80061; 80178; 81001; 82948; 83036; 83605; 84145; 84439; 84443; 85007; 85025; 87040; 87077; 87081; 87186; 87635; 93005; Q0161; Q0177

== ENCOUNTER 2021-03-30 16:19 | Emergency (ER) | payer MEDICAID ==
[~2021-03-30] VITALS: Ht 177.8 cm; Wt 77.3 kg
[2021-03-30] MEDS ORDERED: LORazepam 1 MG tablet PO ONE (16:45)
[2021-03-30 17:03] LABS: BASOPHILS # (AUTO) 0.1 X10'3 (0-0.2); BASOPHILS % (AUTO) 0.8 % (0-1); EOSINOPHILS # (AUTO) 0.3 X10'3 (0-0.9); EOSINOPHILS % (AUTO) 1.7 % (0-6); HEMATOCRIT 39.2 % (42.0-52.0); HEMOGLOBIN 13.1 g/dl (14.0-17.9); LYMPHOCYTES # (AUTO) 4.4 X10'3 (1.1-4.8); LYMPHOCYTES % (AUTO) 25.8 % (21-51); MEAN CORPUSCULAR HEMOGLOBIN 29.7 PG (27.0-31.0); MEAN CORPUSCULAR HGB CONC 33.4 g/dL (33.0-36.5); MEAN PLATELET VOLUME 6.2 FL (7.4-10.4); MONOCYTES # (AUTO) 1.9 X10'3 (0-0.9); MONOCYTES % (AUTO) 11.1 % (2-12); NEUTROPHILS # (AUTO) 10.4 X10'3 (1.8-7.7); NEUTROPHILS % (AUTO) 60.6 % (42-75); PLATELET COUNT 404 X10'3 (140-440); RED BLOOD COUNT 4.41 X10'6 (4.70-6.10); RED CELL DISTRIBUTION WIDTH 14.9 % (11.5-14.5); WHITE BLOOD COUNT 17.1 X10'3 (4.5-11.0)
[2021-03-30 17:17] LABS: ALANINE AMINOTRANSFERASE 57 U/L (12-78); ALBUMIN 3.9 G/DL (3.4-5.0); ALBUMIN/GLOBULIN RATIO 1.1 (1.1-1.5); ALKALINE PHOSPHATASE 82 IU/L (46-116); ANION GAP 10 (8-16); ASPARTATE AMINO TRANSFERASE 22 U/L (10-37); BILIRUBIN,TOTAL 0.2 MG/DL (0.1-1.0); BLOOD UREA NITROGEN 13 MG/DL (7-18); CALCIUM 8.3 MG/DL (8.5-10.1); CHLORIDE 107 MMOL/L (99-107); CREATININE 1.18 MG/DL (0.60-1.10); ETHANOL < 0.010 GM/DL (0.0-0.010); GLUCOSE 130 MG/DL (70-104); SODIUM 141 MMOL/L (135-145); TOTAL CARBON DIOXIDE 23.7 MMOL/L (24-32); TOTAL PROTEIN 7.4 G/DL (6.4-8.2); eGFR 72 ML/MIN
[2021-03-30 17:22] LABS: CLARITY,URINE CLEAR (Clear); COLOR,URINE YELLOW (Yellow); GLUCOSE, URINE NEGATIVE (Neg); KETONES,URINE NEGATIVE (Neg); LEUKOCYTE ESTERASE ,URINE NEGATIVE (Neg); NITRITES, URINE NEGATIVE (Neg); OCCULT BLOOD,URINE TRACE-LYSED (Neg); PROTEIN,URINE NEGATIVE (Neg); UROBILINOGEN,URINE 0.2 E.U/dL (0.2-1.0)
[2021-03-30 17:28] LABS: URINE AMPHETAMINE SCREEN NEGATIVE (Neg); URINE BARBITUATE SCREEN NEGATIVE (Neg); URINE BENZODIAZEPINES SCREEN POSITIVE (Neg); URINE CANNABINOID SCREEN NEGATIVE (Neg); URINE COCAINE SCREEN NEGATIVE (Neg); URINE METHADONE SCREEN NEGATIVE (Neg); URINE OPIATE SCREEN NEGATIVE (Neg); URINE PHENCYCLIDINE SCREEN NEGATIVE (Neg)
[2021-03-30 17:37] LABS: UA COLLECTION TYPE CLN CATCH MIDSTREAM
[2021-03-30 17:38] LABS: BACTERIA,URINE NONE SEEN /HPF (Neg); RBC,URINE 0-2 /HPF (0-2); SQUAMOUS EPITHELIAL CELL,UR NONE SEEN /LPF (FEW); WBC,URINE NONE SEEN /HPF (0-4)
[2021-03-30 18:04] VITALS: BP 123/75
--- NOTE | 2021-03-30 18:08 | NUR ---
[facility] NOTIFIED THAT PT IS MEDICALLY CLEARED.
[2021-03-30] MEDS ORDERED: FLUV50TA3 PO (20:54)
[2021-03-30] MEDS ORDERED: DIAZ5TAB PO (20:54)
[2021-03-30] MEDS ORDERED: TEMA15CA5 PO (20:54)
[2021-03-30] MEDS ORDERED: LITH300T3 PO (20:54)
[2021-03-30] MEDS ORDERED: HYDR50TA65 PO ×2 (20:54)
[2021-03-30] MEDS ORDERED: HALO5TAB PO (20:54)
[2021-03-30] MEDS ORDERED: LISI20TA28 PO (20:54)
[2021-03-30] MEDS ORDERED: HYDR-3686 PO (20:54)
[2021-03-30] MEDS ORDERED: LURA60TA PO (20:54)
[2021-03-30] MEDS ORDERED: ZIPR40CA2 PO (20:54)
[2021-03-30] MEDS ORDERED: CHLO100T16 PO (20:54)
[2021-03-30] MEDS ORDERED: CLOM50CA10 PO (20:54)
[2021-03-30] MEDS ORDERED: CLOZ200T PO (20:54)
== END 2021-03-30 19:03 | disposition home or self-care (01) ==
LOC: ER 16:20
DX: F41.9 Anxiety disorder, unspecified (principal); Z20.822 Contact with and (suspected) exposure to COVID-19; F20.9 Schizophrenia, unspecified; J45.909 Unspecified asthma, uncomplicated; K21.9 Gastro-esophageal reflux disease without esophagitis; F31.9 Bipolar disorder, unspecified; F12.90 Cannabis use, unspecified, uncomplicated; Z87.01 Personal history of pneumonia (recurrent); Z98.890 Other specified postprocedural states; Z60.2 Problems related to living alone; Z59.0 Homelessness; Z79.899 Other long term (current) drug therapy
CPT/HCPCS: 36415; 80053; 80305; 80320; 81001; 85025; 87635; 99283; C9803